=== PATIENT | male | born 1945 | race Two or more races ===

== ENCOUNTER 2019-11-09 15:07 | Emergency (ER) | payer MEDICARE, MEDICAID ==
[~2019-11-09] VITALS: Ht 172.7 cm; Wt 104.0 kg
[2019-11-09 15:35] VITALS: BP 120/76
== END 2019-11-09 20:07 | disposition left against medical advice (07) ==
LOC: ER 15:07
DX: J45.909 Unspecified asthma, uncomplicated (principal); Z53.21 Procedure and treatment not carried out due to patient leaving prior to being seen by health care provider

== ENCOUNTER 2019-11-16 14:44 | Inpatient (IN) | payer MEDICARE, MEDICAID ==
[~2019-11-16] VITALS: Ht 170.2 cm; Wt 100.4 kg
[2019-11-16] MEDS ORDERED: MAGNESIUM 2 G PREMIX 50 ML IV STA (15:48)
[2019-11-16] MEDS ORDERED: METHYLPREDNISOLONE SOD SUCC 125 MG/2 ML VIAL IV STA (15:48)
[2019-11-16] MEDS ORDERED: ALBUTEROL (0.083%) 2.5MG/3ML NEB HHN STA (15:48)
[2019-11-16] MEDS ORDERED: IPRATROPIUM BROMIDE (0.02%) 0.5MG/2.5ML NEB HHN STA (15:48)
[2019-11-16] MEDS ORDERED: LEVOFLOXACIN 500MG PREMIX 100 ML IV ONE (16:00)
[2019-11-16 16:13] LABS: BASOPHILS % 0.5 % (0.0-2.0); EOSINOPHILS % 4.9 % (0.0-5.0); HEMATOCRIT. 45.4 % (42.0-52.0); HEMOGLOBIN. 15.6 g/dL (14.0-18.0); MEAN CORPUSCULAR HEMOGLOBIN 33.2 pg (28.0-32.0); MEAN CORPUSCULAR VOLUME 96.6 fL (80.0-94.0); MEAN PLATELET VOLUME 8.8 fl (7.4-10.4); NEUTROPHILS % 72.6 % (40.0-76.0); PLATELET 175 x1000/uL (130-400); RED CELL DISTRIBUTION WIDTH 14.1 % (11.6-14.6)
[2019-11-16 16:17] LABS: CHLORIDE 109 mEq/L (98-107)
[2019-11-16 16:18] LABS: PROTHROMBIN TIME 10.5 sec (9.6-11.0)
[2019-11-16] MEDS ORDERED: SODIUM CHLORIDE 0.9% 1,000 ML IV ONE (16:51)
[2019-11-16 18:28] VITALS: BP 138/75
[2019-11-16] MEDS ORDERED: IPRATROPIUM/ALBUTEROL 0.5-3(2.5)MG/3ML NEB NEB SCH (18:45)
[2019-11-16] MEDS ORDERED: CLONIDINE 0.1MG TABLET PO PRN (18:45)
[2019-11-16] MEDS ORDERED: ONDANSETRON HCL 4MG/2ML INJ IV PRN (18:45)
[2019-11-16] MEDS ORDERED: ACETAMINOPHEN 325MG TABLET PO PRN (18:45)
[2019-11-16 20:00] VITALS: BP 138/83
[2019-11-16] MEDS ORDERED: INFLUENZA VIRUS VACCINE(AFLURIA) 0.5ML SYR IM ONE (20:00)
[2019-11-16] MEDS: METHYLPREDNISOLONE SOD SUCC 125 MG/2 ML VIAL IV SCH (20:54)
[2019-11-16] MEDS: IPRATROPIUM/ALBUTEROL 0.5-3(2.5)MG/3ML NEB NEB SCH ×2 (21:08→23:52)
[2019-11-16 22:00] VITALS: BP 115/54
[2019-11-16] MEDS: DOXYCYCLINE 100 MG in DEXT 5% WATER 100 ML IV SCH (22:45)
[2019-11-16] MEDS: HEPARIN 5000 UNITS/ML VIAL SUBCUT SCH (22:46)
[2019-11-17] VITALS (12 sets, daily range): BP systolic 103–157; BP diastolic 53–91
[2019-11-17] MEDS: METHYLPREDNISOLONE SOD SUCC 125 MG/2 ML VIAL IV SCH ×3 (02:12→14:14)
[2019-11-17] MEDS: IPRATROPIUM/ALBUTEROL 0.5-3(2.5)MG/3ML NEB NEB SCH ×5 (03:50→20:41)
[2019-11-17 07:06] LABS: CHLORIDE 114 mEq/L (98-107)
[2019-11-17 07:32] LABS: HEMATOCRIT. 42.8 % (42.0-52.0); HEMOGLOBIN. 14.5 g/dL (14.0-18.0); MEAN CORPUSCULAR HEMOGLOBIN 32.7 pg (28.0-32.0); MEAN CORPUSCULAR VOLUME 96.6 fL (80.0-94.0); MEAN PLATELET VOLUME 9.2 fl (7.4-10.4); PLATELET 164 x1000/uL (130-400); RED BLOOD CELL COUNT 4.43 mill/uL (4.7-6.1)
[2019-11-17 08:37] LABS: BG CARBOXYHEMOGLOBIN 0.6 % (0.5-1.5); BG DEOXYHEMOGLOBIN 6.8 % (0.0-5.0); BG FRACTION INSPIRED OXYGEN 21; BG HCO3 ACT 23.1 mmol/L (22.0-26.0); BG METHEMOGLOBIN 0.2 % (0.0-1.5); BG OXYGEN SATURATION 93.1 % (92.0-98.5); BG OXYHEMOGLOBIN 92.4 % (94.0-97.0); BG PCO2 40.7 mmHg (35.0-45.0); BG PH 7.371 (7.350-7.450); BG PO2 64.8 mmHg (75.0-100.0); BG SAMPLE SITE RIGHT RADIAL; BG TOTAL HEMOGLOBIN 15.7 g/dL (12.0-18.0); BG VENT MODE ROOM AIR
[2019-11-17] MEDS: DOXYCYCLINE 100 MG in DEXT 5% WATER 100 ML IV SCH ×2 (08:42→20:31)
[2019-11-17] MEDS: HEPARIN 5000 UNITS/ML VIAL SUBCUT SCH ×2 (08:44→20:31)
[2019-11-17 09:24] LABS: PLATELET ESTIMATE NORMAL
[2019-11-17] MEDS ORDERED: BENZONATATE 100MG CAPSULE PO PRN (13:15)
[2019-11-17] MEDS: BUDESONIDE 0.5MG/2ML NEB HHN SCH (16:55)
[2019-11-17] MEDS: METHYLPREDNISOLONE SOD SUCC 40 MG/ML VIAL IV SCH (20:30)
[2019-11-17] MEDS: FLUTICASONE PROPIONATE 50MCG/SPRAY BOTTLE BOTHNSTRLS SCH (20:31)
[2019-11-18] VITALS (10 sets, daily range): BP systolic 100–141; BP diastolic 48–95
[2019-11-18] MEDS: IPRATROPIUM/ALBUTEROL 0.5-3(2.5)MG/3ML NEB NEB SCH ×6 (01:16→21:27)
[2019-11-18] MEDS: BUDESONIDE 0.5MG/2ML NEB HHN SCH ×3 (04:12→21:27)
[2019-11-18] MEDS: METHYLPREDNISOLONE SOD SUCC 40 MG/ML VIAL IV SCH ×3 (04:37→21:01)
[2019-11-18] MEDS: FLUTICASONE PROPIONATE 50MCG/SPRAY BOTTLE BOTHNSTRLS SCH ×2 (09:26→20:53)
[2019-11-18] MEDS: DOXYCYCLINE 100 MG in DEXT 5% WATER 100 ML IV SCH ×2 (09:26→20:53)
[2019-11-18] MEDS: HEPARIN 5000 UNITS/ML VIAL SUBCUT SCH ×2 (09:27→21:01)
[2019-11-18] MEDS ORDERED: MAGNESIUM HYDROXIDE 400MG/5ML 30ML UDC PO PRN (13:15)
[2019-11-18] MEDS ORDERED: SENNOSIDES/DOCUSATE SOD 8.6/50MG TABLET PO PRN (13:15)
[2019-11-18 15:47] LABS: HEMATOCRIT. 42.7 % (42.0-52.0); HEMOGLOBIN. 14.3 g/dL (14.0-18.0); MEAN CORPUSCULAR HEMOGLOBIN 32.5 pg (28.0-32.0); MEAN CORPUSCULAR VOLUME 97.3 fL (80.0-94.0); MEAN PLATELET VOLUME 8.8 fl (7.4-10.4); PLATELET 208 x1000/uL (130-400); RED BLOOD CELL COUNT 4.39 mill/uL (4.7-6.1); RED CELL DISTRIBUTION WIDTH 14.3 % (11.6-14.6)
[2019-11-18 16:02] LABS: CHLORIDE 111 mEq/L (98-107)
[2019-11-18 17:12] LABS: PLATELET ESTIMATE NORMAL
[2019-11-19] VITALS (12 sets, daily range): BP systolic 107–155; BP diastolic 48–91
[2019-11-19] MEDS: IPRATROPIUM/ALBUTEROL 0.5-3(2.5)MG/3ML NEB NEB SCH ×5 (00:21→16:53)
[2019-11-19] MEDS: METHYLPREDNISOLONE SOD SUCC 40 MG/ML VIAL IV SCH ×2 (03:04→12:04)
[2019-11-19 07:07] LABS: HEMATOCRIT. 44.3 % (42.0-52.0); MEAN CORPUSCULAR HEMOGLOBIN 33.1 pg (28.0-32.0); MEAN CORPUSCULAR VOLUME 97.7 fL (80.0-94.0); MEAN PLATELET VOLUME 8.8 fl (7.4-10.4); PLATELET 203 x1000/uL (130-400); RED BLOOD CELL COUNT 4.54 mill/uL (4.7-6.1); RED CELL DISTRIBUTION WIDTH 14.5 % (11.6-14.6)
[2019-11-19 07:21] LABS: CHLORIDE 112 mEq/L (98-107)
[2019-11-19] MEDS: BUDESONIDE 0.5MG/2ML NEB HHN SCH ×2 (08:04→21:08)
[2019-11-19] MEDS: HEPARIN 5000 UNITS/ML VIAL SUBCUT SCH ×2 (09:37→20:57)
[2019-11-19] MEDS: FLUTICASONE PROPIONATE 50MCG/SPRAY BOTTLE BOTHNSTRLS SCH ×2 (09:38→20:56)
[2019-11-19] MEDS: DOCUSATE SODIUM 100MG CAPSULE PO PRN ×2 (09:38→17:07)
[2019-11-19] MEDS: DOXYCYCLINE 100 MG in DEXT 5% WATER 100 ML IV SCH ×2 (09:38→20:56)
[2019-11-19 10:12] LABS: CLARITY URINE CLEAR (CLEAR); COLOR URINE YELLOW (YELLOW); KETONES URINE NEGATIVE (NEGATIVE); LEUKOCYTE ESTERASE URINE NEGATIVE (NEGATIVE); NITRITE URINE NEGATIVE (NEGATIVE); OCCULT BLOOD URINE NEGATIVE (NEGATIVE); PH URINE 6.5 (4.5-8.0); PROTEIN URINE NEGATIVE (NEGATIVE); SPECIFIC GRAVITY URINE 1.017 (1.005-1.030); UROBILINOGEN URINE 0.2 E.U./dL (0.2-1.0)
[2019-11-19 10:26] LABS: PLATELET ESTIMATE NORMAL
[2019-11-19 12:14] LABS: T4 FREE 1.04 ng/dL (0.76-1.46)
[2019-11-19 14:15] LABS: VITAMIN B12 SERUM > 2000.0 pg/mL (211-911)
[2019-11-19] MEDS: LORATADINE 10MG TABLET PO SCH (15:29)
[2019-11-19] MEDS: MONTELUKAST SODIUM 10MG TABLET PO SCH (17:07)
[2019-11-19] MEDS: METHYLPREDNISOLONE SOD SUCC 125 MG/2 ML VIAL IV SCH (20:55)
[2019-11-19] MEDS: FAMOTIDINE 20MG TABLET PO SCH (20:56)
[2019-11-20] VITALS (11 sets, daily range): BP systolic 123–158; BP diastolic 67–99
[2019-11-20] MEDS: IPRATROPIUM/ALBUTEROL 0.5-3(2.5)MG/3ML NEB NEB SCH ×7 (00:06→23:57)
[2019-11-20] MEDS: METHYLPREDNISOLONE SOD SUCC 125 MG/2 ML VIAL IV SCH ×3 (04:41→20:24)
[2019-11-20 06:57] LABS: CHLORIDE 111 mEq/L (98-107)
[2019-11-20 07:06] LABS: BASOPHILS % 0.1 % (0.0-2.0); HEMATOCRIT. 43.6 % (42.0-52.0); HEMOGLOBIN. 14.5 g/dL (14.0-18.0); LYMPHOCYTES % 8.3 % (20.0-50.0); MEAN CORPUSCULAR HEMOGLOBIN 32.6 pg (28.0-32.0); MEAN CORPUSCULAR VOLUME 97.6 fL (80.0-94.0); MEAN PLATELET VOLUME 8.9 fl (7.4-10.4); MONOCYTES % 4.7 % (2.0-8.0); NEUTROPHILS % 86.9 % (40.0-76.0); PLATELET 187 x1000/uL (130-400); RED BLOOD CELL COUNT 4.46 mill/uL (4.7-6.1)
[2019-11-20] MEDS: LORATADINE 10MG TABLET PO SCH (08:22)
[2019-11-20] MEDS: DOXYCYCLINE 100 MG in DEXT 5% WATER 100 ML IV SCH ×2 (08:22→20:25)
[2019-11-20] MEDS: HEPARIN 5000 UNITS/ML VIAL SUBCUT SCH ×2 (08:23→20:26)
[2019-11-20] MEDS: FLUTICASONE PROPIONATE 50MCG/SPRAY BOTTLE BOTHNSTRLS SCH ×2 (08:24→20:26)
[2019-11-20] MEDS: BUDESONIDE 0.5MG/2ML NEB HHN SCH (08:54)
[2019-11-20] MEDS: FAMOTIDINE 20MG TABLET PO SCH ×2 (10:46→20:25)
[2019-11-20] MEDS: MONTELUKAST SODIUM 10MG TABLET PO SCH (16:43)
[2019-11-21] VITALS (12 sets, daily range): BP systolic 122–154; BP diastolic 58–93
[2019-11-21] MEDS: IPRATROPIUM/ALBUTEROL 0.5-3(2.5)MG/3ML NEB NEB SCH ×5 (04:26→19:47)
[2019-11-21] MEDS: METHYLPREDNISOLONE SOD SUCC 125 MG/2 ML VIAL IV SCH ×3 (05:48→20:15)
[2019-11-21 07:05] LABS: CHLORIDE 110 mEq/L (98-107)
[2019-11-21 07:08] LABS: HEMATOCRIT. 43.1 % (42.0-52.0); HEMOGLOBIN. 14.9 g/dL (14.0-18.0); MEAN CORPUSCULAR HEMOGLOBIN 33.1 pg (28.0-32.0); MEAN CORPUSCULAR VOLUME 96.2 fL (80.0-94.0); MEAN PLATELET VOLUME 8.8 fl (7.4-10.4); PLATELET 197 x1000/uL (130-400); RED BLOOD CELL COUNT 4.48 mill/uL (4.7-6.1); RED CELL DISTRIBUTION WIDTH 14.3 % (11.6-14.6)
[2019-11-21 08:24] LABS: BG BASE EXCESS 1.5 mmol/L (-2.0-2.0); BG CARBOXYHEMOGLOBIN 0.3 % (0.5-1.5); BG DEOXYHEMOGLOBIN 2.5 % (0.0-5.0); BG HCO3 ACT 26.3 mmol/L (22.0-26.0); BG METHEMOGLOBIN 0.2 % (0.0-1.5); BG OXYGEN SATURATION 97.5 % (92.0-98.5); BG PCO2 42.1 mmHg (35.0-45.0); BG PH 7.413 (7.350-7.450); BG PO2 98.8 mmHg (75.0-100.0); BG SAMPLE SITE RIGHT BRACHIAL; BG TOTAL HEMOGLOBIN 15.3 g/dL (12.0-18.0); BG VENT MODE NASAL CANNULA
[2019-11-21] MEDS: FAMOTIDINE 20MG TABLET PO SCH ×2 (08:39→20:15)
[2019-11-21] MEDS: HEPARIN 5000 UNITS/ML VIAL SUBCUT SCH ×2 (08:39→20:15)
[2019-11-21] MEDS: LORATADINE 10MG TABLET PO SCH (08:39)
[2019-11-21] MEDS: DOXYCYCLINE 100 MG in DEXT 5% WATER 100 ML IV SCH ×2 (08:40→20:17)
[2019-11-21 09:25] LABS: PLATELET ESTIMATE NORMAL
[2019-11-21] MEDS: MONTELUKAST SODIUM 10MG TABLET PO SCH (16:26)
[2019-11-22] VITALS (11 sets, daily range): BP systolic 110–158; BP diastolic 58–89
[2019-11-22] MEDS: IPRATROPIUM/ALBUTEROL 0.5-3(2.5)MG/3ML NEB NEB SCH ×5 (00:12→15:44)
[2019-11-22] MEDS: METHYLPREDNISOLONE SOD SUCC 125 MG/2 ML VIAL IV SCH ×2 (03:51→12:29)
[2019-11-22 07:07] LABS: CHLORIDE 109 mEq/L (98-107)
[2019-11-22] MEDS: DOXYCYCLINE 100 MG in DEXT 5% WATER 100 ML IV SCH (09:00)
[2019-11-22] MEDS: LORATADINE 10MG TABLET PO SCH (09:01)
[2019-11-22] MEDS: FAMOTIDINE 20MG TABLET PO SCH (09:15)
[2019-11-22] MEDS: HEPARIN 5000 UNITS/ML VIAL SUBCUT SCH (09:17)
[2019-11-22 09:41] LABS: HEMOGLOBIN. 15.6 g/dL (14.0-18.0); MEAN CORPUSCULAR HEMOGLOBIN 32.2 pg (28.0-32.0); MEAN PLATELET VOLUME 8.6 fl (7.4-10.4); PLATELET 220 x1000/uL (130-400); RED BLOOD CELL COUNT 4.85 mill/uL (4.7-6.1); RED CELL DISTRIBUTION WIDTH 14.7 % (11.6-14.6)
[2019-11-22 11:20] LABS: PLATELET ESTIMATE NORMAL
[2019-11-22] MEDS: SODIUM POLYSTYRENE SULFONATE 15 G/60 ML BOT PO NR ×2 (14:36→14:45)
[2019-11-22] MEDS: MONTELUKAST SODIUM 10MG TABLET PO SCH (17:37)
[2019-11-22] MEDS ORDERED: METHYLPREDNISOLONE SOD SUCC 40 MG/ML VIAL IV SCH (20:00)
== END 2019-11-22 20:05 | DRG 189 ==
LOC: ER 14:44 → 3WST 17:07 → EDBEDREQ 17:12 → EDBEDREQSVC 17:12 → ENRESERV 17:20
PROVIDERS: ADMIT Internal Medicine; ATTEND Internal Medicine
PROC: 4A00X4Z Measurement of Central Nervous Electrical Activity, External Approach (ICD-10-PCS; principal; 2019-11-22)
DX: J96.01 Acute respiratory failure with hypoxia (principal); G92 Toxic encephalopathy; G82.50 Quadriplegia, unspecified; M47.12 Other spondylosis with myelopathy, cervical region; J44.0 Chronic obstructive pulmonary disease with (acute) lower respiratory infection; J45.901 Unspecified asthma with (acute) exacerbation; G95.29 Other cord compression; J44.1 Chronic obstructive pulmonary disease with (acute) exacerbation; J20.9 Acute bronchitis, unspecified; I10 Essential (primary) hypertension; M48.02 Spinal stenosis, cervical region; M48.061 Spinal stenosis, lumbar region without neurogenic claudication; E66.01 Morbid (severe) obesity due to excess calories; R53.81 Other malaise; R47.1 Dysarthria and anarthria; J31.0 Chronic rhinitis; J84.10 Pulmonary fibrosis, unspecified; G31.84 Mild cognitive impairment of uncertain or unknown etiology; R26.89 Other abnormalities of gait and mobility; R90.82 White matter disease, unspecified; M47.892 Other spondylosis, cervical region; M19.90 Unspecified osteoarthritis, unspecified site; Z87.891 Personal history of nicotine dependence; Z68.34 Body mass index [BMI] 34.0-34.9, adult; Z99.3 Dependence on wheelchair
CPT/HCPCS: 36415; 36600; 70551; 71045; 72141; 72146; 72148; 73521; 80048; 80053; 81003; 82140; 82375; 82607; 82746; 82805; 83036; 83605; 83735; 83880; 84145; 84436; 84439; 84443; 84480; 84481; 84484; 85025; 87804; 90686; 93005; 93970; 94640; 94644; 96365; 97162; 97166; 97530; 99291; J1644; J1956; J2920; J2930; J3475; J3490; J7030; J7060; J7626

== ENCOUNTER 2019-12-01 16:03 | Inpatient (IN) | payer MEDICARE, MEDICAID ==
[~2019-12-01] VITALS: Ht 167.6 cm; Wt 100.4 kg
[2019-12-01] MEDS ORDERED: SODIUM CHLORIDE 0.9% 1,000 ML IV ONE (16:48)
[2019-12-01 17:26] LABS: INR 0.9
[2019-12-01 17:28] LABS: BASOPHILS % 0.2 % (0.0-2.0); EOSINOPHILS % 0.6 % (0.0-5.0); HEMATOCRIT. 44.6 % (42.0-52.0); HEMOGLOBIN. 15.1 g/dL (14.0-18.0); LYMPHOCYTES % 7.7 % (20.0-50.0); MEAN CORPUSCULAR HEMOGLOBIN 32.6 pg (28.0-32.0); MEAN CORPUSCULAR VOLUME 96.4 fL (80.0-94.0); MEAN PLATELET VOLUME 9.1 fl (7.4-10.4); MONOCYTES % 4.4 % (2.0-8.0); NEUTROPHILS % 87.1 % (40.0-76.0); PLATELET 157 x1000/uL (130-400); RED BLOOD CELL COUNT 4.63 mill/uL (4.7-6.1); RED CELL DISTRIBUTION WIDTH 14.5 % (11.6-14.6)
[2019-12-01 17:30] LABS: CHLORIDE 106 mEq/L (98-107)
[2019-12-01 18:43] LABS: CLARITY URINE CLEAR (CLEAR); COLOR URINE YELLOW (YELLOW); KETONES URINE NEGATIVE (NEGATIVE); LEUKOCYTE ESTERASE URINE NEGATIVE (NEGATIVE); NITRITE URINE NEGATIVE (NEGATIVE); OCCULT BLOOD URINE NEGATIVE (NEGATIVE); PH URINE 6.5 (4.5-8.0); PROTEIN URINE NEGATIVE (NEGATIVE); SPECIFIC GRAVITY URINE 1.013 (1.005-1.030); UROBILINOGEN URINE 0.2 E.U./dL (0.2-1.0)
[2019-12-01] MEDS ORDERED: ACETAMINOPHEN 325MG TABLET PO PRN (18:45)
[2019-12-01] MEDS ORDERED: ONDANSETRON HCL 4MG/2ML INJ IV PRN (18:45)
[2019-12-01] MEDS ORDERED: HYDROCODONE/ACETAMINOPHEN 5/325MG TABLET PO PRN (18:45)
[2019-12-01 22:42] VITALS: BP 111/66
[2019-12-01] MEDS ORDERED: FAMO20TA8 PO (23:32)
[2019-12-01] MEDS ORDERED: NA P230E RC (23:32)
[2019-12-01] MEDS ORDERED: CLON0.1T PO (23:32)
[2019-12-01] MEDS ORDERED: MONT10TA26 PO (23:32)
[2019-12-01] MEDS ORDERED: DOCU-150 PO (23:32)
[2019-12-01] MEDS ORDERED: BENZ100C86 MT (23:32)
[2019-12-01] MEDS ORDERED: MOM MT (23:32)
[2019-12-01] MEDS ORDERED: IPRA3AMP31 IH (23:32)
[2019-12-01] MEDS ORDERED: ONDA4SOL PO (23:32)
[2019-12-01 23:36] VITALS: BP 111/72
[2019-12-02 04:00] VITALS: BP_SYST 106
[2019-12-02] MEDS ORDERED: IPRATROPIUM/ALBUTEROL 0.5-3(2.5)MG/3ML NEB HHN PRN (05:00)
[2019-12-02 06:12] LABS: BASOPHILS % 0.3 % (0.0-2.0); EOSINOPHILS % 1.4 % (0.0-5.0); HEMATOCRIT. 43.1 % (42.0-52.0); HEMOGLOBIN. 14.6 g/dL (14.0-18.0); LYMPHOCYTES % 16.3 % (20.0-50.0); MEAN CORPUSCULAR HEMOGLOBIN 32.9 pg (28.0-32.0); MEAN CORPUSCULAR VOLUME 97.3 fL (80.0-94.0); MEAN PLATELET VOLUME 9.2 fl (7.4-10.4); MONOCYTES % 6.3 % (2.0-8.0); NEUTROPHILS % 75.7 % (40.0-76.0); PLATELET 141 x1000/uL (130-400); RED BLOOD CELL COUNT 4.43 mill/uL (4.7-6.1); RED CELL DISTRIBUTION WIDTH 14.6 % (11.6-14.6)
[2019-12-02 06:34] LABS: CHLORIDE 113 mEq/L (98-107)
[2019-12-02 08:00] VITALS: BP 116/56
[2019-12-02] MEDS: DEXAMETHASONE 4MG/ML 1ML VIAL IV SCH ×2 (08:17→13:25)
[2019-12-02] MEDS ORDERED: HEPARIN 5000 UNITS/ML VIAL SUBCUT SCH (09:00)
[2019-12-02 12:00] VITALS: BP 115/66
[2019-12-02] MEDS ORDERED: MAGNESIUM HYDROXIDE 400MG/5ML 30ML UDC PO PRN (12:15)
[2019-12-02] MEDS ORDERED: FAMOTIDINE 20MG TABLET PO PRN (12:30)
[2019-12-02] MEDS: BENZONATATE 100MG CAPSULE PO SCH ×2 (13:28→21:59)
[2019-12-02 16:00] VITALS: BP 113/83
[2019-12-02 16:50] LABS: BG BASE EXCESS -2.5 mmol/L (-2.0-2.0); BG CARBOXYHEMOGLOBIN 0.2 % (0.5-1.5); BG DEOXYHEMOGLOBIN 3.3 % (0.0-5.0); BG HCO3 ACT 21.5 mmol/L (22.0-26.0); BG METHEMOGLOBIN 0.1 % (0.0-1.5); BG OXYGEN SATURATION 96.7 % (92.0-98.5); BG OXYHEMOGLOBIN 96.4 % (94.0-97.0); BG PH 7.406 (7.350-7.450); BG PO2 85.7 mmHg (75.0-100.0); BG SAMPLE SITE RIGHT RADIAL; BG TOTAL HEMOGLOBIN 15.4 g/dL (12.0-18.0); BG VENT MODE NASAL CANNULA
[2019-12-02] MEDS: LACTULOSE 20G/30ML UDC PO SCH ×3 (17:00→20:41)
[2019-12-02] MEDS: MONTELUKAST SODIUM 10MG TABLET PO SCH (17:41)
[2019-12-02] MEDS: LORATADINE 10MG TABLET PO SCH (17:41)
[2019-12-02] MEDS: DEXAMETHASONE 10 MG/ML VIAL IV SCH (17:42)
[2019-12-02] MEDS: FAMOTIDINE 20MG/2ML VIAL IV SCH (17:42)
[2019-12-02] MEDS ORDERED: METHYLPREDNISOLONE SOD SUCC 125 MG/2 ML VIAL IV SCH (18:00)
[2019-12-02 20:00] VITALS: BP 114/70
[2019-12-02] MEDS: FLUTICASONE PROPIONATE 50MCG/SPRAY BOTTLE BOTHNSTRLS SCH (20:41)
[2019-12-02] MEDS: IPRATROPIUM/ALBUTEROL 0.5-3(2.5)MG/3ML NEB HHN SCH (21:10)
[2019-12-03] VITALS: BP 118/71
[2019-12-03] MEDS: IPRATROPIUM/ALBUTEROL 0.5-3(2.5)MG/3ML NEB HHN SCH ×6 (00:26→21:33)
[2019-12-03] MEDS: DEXAMETHASONE 10 MG/ML VIAL IV SCH ×4 (01:03→17:52)
[2019-12-03 04:00] VITALS: BP 131/70
[2019-12-03] MEDS: FAMOTIDINE 20MG/2ML VIAL IV SCH ×2 (06:24→17:52)
[2019-12-03] MEDS: BENZONATATE 100MG CAPSULE PO SCH ×3 (06:24→21:28)
[2019-12-03 06:57] LABS: CHLORIDE 109 mEq/L (98-107)
[2019-12-03 06:59] LABS: HEMATOCRIT. 43.2 % (42.0-52.0); HEMOGLOBIN. 14.4 g/dL (14.0-18.0); MEAN CORPUSCULAR HEMOGLOBIN 32.4 pg (28.0-32.0); MEAN PLATELET VOLUME 9.1 fl (7.4-10.4); PLATELET 147 x1000/uL (130-400); RED BLOOD CELL COUNT 4.45 mill/uL (4.7-6.1); RED CELL DISTRIBUTION WIDTH 14.4 % (11.6-14.6)
[2019-12-03 08:00] VITALS: BP_SYST 111; BP_SYST 119; BP_DIAS 65; BP_DIAS 67
[2019-12-03] MEDS: FLUTICASONE PROPIONATE 50MCG/SPRAY BOTTLE BOTHNSTRLS SCH ×2 (08:52→20:55)
[2019-12-03] MEDS: LORATADINE 10MG TABLET PO SCH (08:52)
[2019-12-03 11:08] LABS: PLATELET ESTIMATE NORMAL
[2019-12-03 12:00] VITALS: BP 111/65
[2019-12-03 15:59] VITALS: BP 120/72
[2019-12-03] MEDS: MONTELUKAST SODIUM 10MG TABLET PO SCH (17:52)
[2019-12-03 20:00] VITALS: BP 120/61
[2019-12-03] MEDS: ATORVASTATIN CALCIUM 20MG TABLET PO SCH (20:54)
[2019-12-04] VITALS (49 sets, daily range): BP systolic 100–143; BP diastolic 6–72
[2019-12-04] MEDS: DEXAMETHASONE 10 MG/ML VIAL IV SCH ×2 (01:55→06:29)
[2019-12-04] MEDS: IPRATROPIUM/ALBUTEROL 0.5-3(2.5)MG/3ML NEB HHN SCH ×5 (04:17→20:14)
[2019-12-04] MEDS: BENZONATATE 100MG CAPSULE PO SCH ×3 (06:29→21:58)
[2019-12-04 06:39] LABS: HEMATOCRIT. 42.8 % (42.0-52.0); HEMOGLOBIN. 14.5 g/dL (14.0-18.0); MEAN CORPUSCULAR VOLUME 96.9 fL (80.0-94.0); MEAN PLATELET VOLUME 9.4 fl (7.4-10.4); PLATELET 157 x1000/uL (130-400); RED BLOOD CELL COUNT 4.41 mill/uL (4.7-6.1); RED CELL DISTRIBUTION WIDTH 14.6 % (11.6-14.6)
[2019-12-04] MEDS ORDERED: THROMBIN (BOVINE) 5000 UNITS/VIAL TOP ONE (06:54)
[2019-12-04] MEDS ORDERED: LIDOCAINE HCL/EPINEPHRINE 1%-EPI 1:100,000 20 ML VIAL ONE ×2 (06:55→07:17)
[2019-12-04] MEDS ORDERED: BACITRACIN 50,000 UNITS/VIAL ONE (06:55)
[2019-12-04 06:59] LABS: CHLORIDE 111 mEq/L (98-107)
[2019-12-04] MEDS ORDERED: HYDROCODONE/ACETAMINOPHEN 5/325MG TABLET PO PRN (07:30)
[2019-12-04] MEDS ORDERED: CEFAZOLIN SODIUM 1000MG/VIAL ONE (07:38)
[2019-12-04] MEDS ORDERED: GLYCOPYRROLATE 0.2 MG/ML 2ML VIAL ONE (07:38)
[2019-12-04] MEDS ORDERED: SODIUM CHLORIDE 0.9% 10ML VIAL ONE (07:38)
[2019-12-04] MEDS ORDERED: ROCURONIUM BROMIDE 10MG/ML VIAL 5ML IV ONE ×3 (07:38→09:02)
[2019-12-04] MEDS ORDERED: NEOSTIGMINE METHYLSULFATE 1MG/ML 10 ML VIAL ONE (07:38)
[2019-12-04] MEDS ORDERED: SUCCINYLCHOLINE CHLORIDE 200MG/10ML IV ONE (07:38)
[2019-12-04] MEDS ORDERED: PROPOFOL 200MG/20ML VIAL IV ONE ×2 (07:38→08:24)
[2019-12-04] MEDS ORDERED: FENTANYL CITRATE/PF 50MCG/ML 2ML VIAL ONE (07:38)
[2019-12-04] MEDS ORDERED: LIDOCAINE HCL/PF 1% 10 MG/ML 5ML VIAL ONE (07:38)
[2019-12-04] MEDS ORDERED: MIDAZOLAM HCL 2 MG/2 ML VIAL ONE (07:38)
[2019-12-04] MEDS ORDERED: DEXAMETHASONE 4MG/ML 1ML VIAL ONE (07:39)
[2019-12-04] MEDS ORDERED: METOCLOPRAMIDE HCL 10MG/2ML VIAL ONE (07:39)
[2019-12-04] MEDS ORDERED: ONDANSETRON HCL 4MG/2ML INJ ONE (07:39)
[2019-12-04] MEDS: FLUTICASONE PROPIONATE 50MCG/SPRAY BOTTLE BOTHNSTRLS SCH ×2 (09:00→19:53)
[2019-12-04] MEDS ORDERED: HYDROMORPHONE HCL/PF 2MG/ML CPJ IV PRN (09:00)
[2019-12-04] MEDS ORDERED: LABETALOL 5MG/ML SYR 20 MG/4 ML SYRINGE IV PRN (09:00)
[2019-12-04] MEDS ORDERED: FAMOTIDINE 20MG TABLET PO SCH (09:00)
[2019-12-04] MEDS ORDERED: ONDANSETRON HCL 4MG/2ML INJ IV PRN (09:00)
[2019-12-04] MEDS ORDERED: MEPERIDINE HCL/PF 25MG/ML CPJ IV PRN (09:00)
[2019-12-04] MEDS: LORATADINE 10MG TABLET PO SCH (09:00)
[2019-12-04 09:15] LABS: PLATELET ESTIMATE NORMAL
[2019-12-04] MEDS: MORPHINE SULFATE 4 MG/ML CPJ (NOT FOR IM USE) IV PRN ×2 (11:07→14:50)
[2019-12-04] MEDS: NICARDIPINE 100 MG in SODIUM CHLORIDE 0.9% 60 ML IV PRN ×2 (11:08→17:49)
[2019-12-04] MEDS: DEXT 5%/LACTATED RINGERS 1,000 ML IV SCH ×2 (11:08→17:30)
[2019-12-04] MEDS ORDERED: MORPHINE SULFATE 4 MG/ML CPJ (NOT FOR IM USE) IV NR (11:15)
[2019-12-04] MEDS: PROPOFOL 10MG/ML 100ML 100 ML IV PRN ×4 (11:20→22:22)
[2019-12-04 12:14] LABS: BG BASE EXCESS -4.9 mmol/L (-2.0-2.0); BG CARBOXYHEMOGLOBIN 0.4 % (0.5-1.5); BG DEOXYHEMOGLOBIN 0.9 % (0.0-5.0); BG HCO3 ACT 22.5 mmol/L (22.0-26.0); BG METHEMOGLOBIN 0.4 % (0.0-1.5); BG OXYGEN SATURATION 99.1 % (92.0-98.5); BG OXYHEMOGLOBIN 98.3 % (94.0-97.0); BG PCO2 50.9 mmHg (35.0-45.0); BG PH 7.264 (7.350-7.450); BG PO2 189.4 mmHg (75.0-100.0); BG SAMPLE SITE A-LINE; BG TIDAL VOLUME(mL) 550 mL; BG TOTAL HEMOGLOBIN 14.3 g/dL (12.0-18.0); BG VENT MODE VENT - A/C; BG VENT RATE 12 set
[2019-12-04] MEDS: DEXAMETHASONE 4MG/ML 1ML VIAL IV SCH ×3 (13:15→23:41)
[2019-12-04 14:35] LABS: BG BASE EXCESS -3.4 mmol/L (-2.0-2.0); BG CARBOXYHEMOGLOBIN 0.7 % (0.5-1.5); BG HCO3 ACT 21.1 mmol/L (22.0-26.0); BG METHEMOGLOBIN 0.2 % (0.0-1.5); BG OXYHEMOGLOBIN 98.1 % (94.0-97.0); BG PCO2 36.2 mmHg (35.0-45.0); BG PH 7.383 (7.350-7.450); BG PO2 160.2 mmHg (75.0-100.0); BG SAMPLE SITE A-LINE; BG TIDAL VOLUME(mL) 550 mL; BG TOTAL HEMOGLOBIN 13.9 g/dL (12.0-18.0); BG VENT MODE VENT - A/C; BG VENT RATE 18 set
[2019-12-04] MEDS: AZITHROMYCIN 500 MG in DEXT 5% WATER 250 ML IV SCH (16:10)
[2019-12-04] MEDS ORDERED: CEFTRIAXONE 1 G PREMIX 50 ML IV SCH (17:00)
[2019-12-04] MEDS: MONTELUKAST SODIUM 10MG TABLET PO SCH (17:00)
[2019-12-04] MEDS: ATORVASTATIN CALCIUM 20MG TABLET PO SCH (19:53)
[2019-12-04] MEDS: FAMOTIDINE 20MG/2ML VIAL IV SCH (20:43)
[2019-12-05] VITALS (78 sets, daily range): BP systolic 98–157; BP diastolic 44–84
[2019-12-05] MEDS: IPRATROPIUM/ALBUTEROL 0.5-3(2.5)MG/3ML NEB HHN SCH ×6 (00:14→20:24)
[2019-12-05] MEDS: PROPOFOL 10MG/ML 100ML 100 ML IV PRN ×3 (01:31→09:58)
[2019-12-05] MEDS: DEXT 5%/LACTATED RINGERS 1,000 ML IV SCH ×3 (01:39→23:30)
[2019-12-05] MEDS: MORPHINE SULFATE 4 MG/ML CPJ (NOT FOR IM USE) IV PRN ×3 (02:31→11:56)
[2019-12-05] MEDS: DEXAMETHASONE 4MG/ML 1ML VIAL IV SCH ×3 (05:15→17:10)
[2019-12-05] MEDS: BENZONATATE 100MG CAPSULE PO SCH ×3 (05:16→20:15)
[2019-12-05 05:46] LABS: HEMATOCRIT. 37.8 % (42.0-52.0); HEMOGLOBIN. 12.7 g/dL (14.0-18.0); MEAN CORPUSCULAR HEMOGLOBIN 32.7 pg (28.0-32.0); MEAN PLATELET VOLUME 8.9 fl (7.4-10.4); PLATELET 141 x1000/uL (130-400); RED CELL DISTRIBUTION WIDTH 14.2 % (11.6-14.6)
[2019-12-05 05:56] LABS: CHLORIDE 111 mEq/L (98-107)
[2019-12-05 07:46] LABS: BG BASE EXCESS -4.2 mmol/L (-2.0-2.0); BG CARBOXYHEMOGLOBIN 0.3 % (0.5-1.5); BG HCO3 ACT 19.1 mmol/L (22.0-26.0); BG OXYHEMOGLOBIN 97.7 % (94.0-97.0); BG PCO2 30.2 mmHg (35.0-45.0); BG PO2 107.2 mmHg (75.0-100.0); BG SAMPLE SITE A-LINE; BG TIDAL VOLUME(mL) 550 mL; BG TOTAL HEMOGLOBIN 12.7 g/dL (12.0-18.0); BG VENT MODE VENT - A/C; BG VENT RATE 18 set
[2019-12-05 08:27] LABS: PLATELET ESTIMATE NORMAL
[2019-12-05] MEDS: LORATADINE 10MG TABLET PO SCH (09:00)
[2019-12-05] MEDS: FLUTICASONE PROPIONATE 50MCG/SPRAY BOTTLE BOTHNSTRLS SCH (09:00)
[2019-12-05] MEDS: FAMOTIDINE 20MG/2ML VIAL IV SCH ×2 (09:55→21:15)
[2019-12-05 13:08] LABS: BG BASE EXCESS -1.5 mmol/L (-2.0-2.0); BG CARBOXYHEMOGLOBIN 0.3 % (0.5-1.5); BG DEOXYHEMOGLOBIN 3.2 % (0.0-5.0); BG HCO3 ACT 22.9 mmol/L (22.0-26.0); BG METHEMOGLOBIN 0.2 % (0.0-1.5); BG OXYGEN SATURATION 96.8 % (92.0-98.5); BG OXYHEMOGLOBIN 96.3 % (94.0-97.0); BG PCO2 37.7 mmHg (35.0-45.0); BG PH 7.402 (7.350-7.450); BG PO2 83.4 mmHg (75.0-100.0); BG SAMPLE SITE RIGHT BRACHIAL; BG TIDAL VOLUME(mL) 550 mL; BG VENT MODE VENT - SIMV; BG VENT RATE 8 set
[2019-12-05] MEDS: AZITHROMYCIN 500 MG in DEXT 5% WATER 250 ML IV SCH (14:27)
[2019-12-05 15:35] LABS: BG CPAP (cmH2O) 0 cm(H2O); BG DEOXYHEMOGLOBIN 3.4 % (0.0-5.0); BG METHEMOGLOBIN 0.2 % (0.0-1.5); BG OXYGEN SATURATION 96.6 % (92.0-98.5); BG OXYHEMOGLOBIN 96.4 % (94.0-97.0); BG PCO2 36.2 mmHg (35.0-45.0); BG PH 7.421 (7.350-7.450); BG SAMPLE SITE RIGHT BRACHIAL; BG TOTAL HEMOGLOBIN 14.1 g/dL (12.0-18.0); BG VENT MODE VENT - CPAP
[2019-12-05] MEDS: MONTELUKAST SODIUM 10MG TABLET PO SCH (17:00)
[2019-12-05] MEDS: NICARDIPINE 100 MG in SODIUM CHLORIDE 0.9% 60 ML IV PRN (17:11)
[2019-12-05 18:13] LABS: BG BASE EXCESS -1.8 mmol/L (-2.0-2.0); BG CARBOXYHEMOGLOBIN 0.4 % (0.5-1.5); BG HCO3 ACT 21.6 mmol/L (22.0-26.0); BG METHEMOGLOBIN 0.3 % (0.0-1.5); BG OXYHEMOGLOBIN 97.3 % (94.0-97.0); BG PCO2 32.7 mmHg (35.0-45.0); BG PH 7.437 (7.350-7.450); BG PO2 100.8 mmHg (75.0-100.0); BG SAMPLE SITE RIGHT BRACHIAL; BG TOTAL HEMOGLOBIN 14.1 g/dL (12.0-18.0); BG VENT MODE MASK - AEROSOL
[2019-12-05] MEDS: ATORVASTATIN CALCIUM 20MG TABLET PO SCH (20:14)
[2019-12-05] MEDS: CEFTRIAXONE 1 G PREMIX 50 ML IV SCH (21:19)
[2019-12-06] VITALS (92 sets, daily range): BP systolic 91–156; BP diastolic 25–99
[2019-12-06] MEDS: DEXAMETHASONE 4MG/ML 1ML VIAL IV SCH ×3 (00:55→12:00)
[2019-12-06] MEDS: IPRATROPIUM/ALBUTEROL 0.5-3(2.5)MG/3ML NEB HHN SCH ×5 (01:50→20:23)
[2019-12-06] MEDS: BENZONATATE 100MG CAPSULE PO SCH ×3 (05:12→22:12)
[2019-12-06 05:20] LABS: HEMATOCRIT. 40.2 % (42.0-52.0); HEMOGLOBIN. 13.6 g/dL (14.0-18.0); MEAN CORPUSCULAR HEMOGLOBIN 32.8 pg (28.0-32.0); MEAN CORPUSCULAR VOLUME 96.9 fL (80.0-94.0); MEAN PLATELET VOLUME 8.7 fl (7.4-10.4); PLATELET 135 x1000/uL (130-400); RED BLOOD CELL COUNT 4.14 mill/uL (4.7-6.1); RED CELL DISTRIBUTION WIDTH 14.1 % (11.6-14.6)
[2019-12-06 05:31] LABS: CHLORIDE 111 mEq/L (98-107)
[2019-12-06 06:24] LABS: PLATELET ESTIMATE NORMAL
[2019-12-06] MEDS ORDERED: LIDOCAINE HCL 1% 20ML VIAL (Pyxis) INJ ONE (07:28)
[2019-12-06] MEDS: DOCUSATE SODIUM 100MG CAPSULE PO PRN (08:57)
[2019-12-06] MEDS: FAMOTIDINE 20MG/2ML VIAL IV SCH ×2 (08:57→21:30)
[2019-12-06] MEDS: LORATADINE 10MG TABLET PO SCH (08:58)
[2019-12-06] MEDS: MORPHINE SULFATE 4 MG/ML CPJ (NOT FOR IM USE) IV PRN (09:00)
[2019-12-06] MEDS: DEXT 5%/LACTATED RINGERS 1,000 ML IV SCH (09:01)
[2019-12-06] MEDS: CLONIDINE 0.1MG TABLET PO PRN ×2 (09:58→17:10)
[2019-12-06] MEDS: AZITHROMYCIN 500 MG in DEXT 5% WATER 250 ML IV SCH (14:18)
[2019-12-06] MEDS: MONTELUKAST SODIUM 10MG TABLET PO SCH (17:10)
[2019-12-06] MEDS: BUDESONIDE 0.5MG/2ML NEB HHN SCH (17:20)
[2019-12-06] MEDS: CARVEDILOL 6.25 MG TABLET PO SCH ×2 (19:22→21:00)
[2019-12-06] MEDS: ATORVASTATIN CALCIUM 20MG TABLET PO SCH (21:30)
[2019-12-06] MEDS: CEFTRIAXONE 1 G PREMIX 50 ML IV SCH (21:30)
[2019-12-07] VITALS (58 sets, daily range): BP systolic 107–160; BP diastolic 42–89
[2019-12-07] MEDS: IPRATROPIUM/ALBUTEROL 0.5-3(2.5)MG/3ML NEB HHN SCH ×4 (02:19→21:37)
[2019-12-07 05:34] LABS: HEMATOCRIT. 38.2 % (42.0-52.0); MEAN CORPUSCULAR VOLUME 96.7 fL (80.0-94.0); MEAN PLATELET VOLUME 8.3 fl (7.4-10.4); PLATELET 115 x1000/uL (130-400); RED BLOOD CELL COUNT 3.95 mill/uL (4.7-6.1)
[2019-12-07 05:37] LABS: CHLORIDE 111 mEq/L (98-107)
[2019-12-07] MEDS: BENZONATATE 100MG CAPSULE PO SCH ×3 (06:06→22:35)
[2019-12-07] MEDS: BUDESONIDE 0.5MG/2ML NEB HHN SCH ×2 (08:38→21:37)
[2019-12-07] MEDS: FAMOTIDINE 20MG/2ML VIAL IV SCH ×2 (09:46→22:35)
[2019-12-07] MEDS: CARVEDILOL 6.25 MG TABLET PO SCH ×2 (09:47→22:35)
[2019-12-07] MEDS: LORATADINE 10MG TABLET PO SCH (09:47)
[2019-12-07] MEDS ORDERED: DOCUSATE SODIUM 100MG CAPSULE PO PRN (10:15)
[2019-12-07] MEDS ORDERED: MAGNESIUM HYDROXIDE 400MG/5ML 30ML UDC PO PRN (10:15)
[2019-12-07] MEDS ORDERED: SENNOSIDES/DOCUSATE SOD 8.6/50MG TABLET PO PRN (10:15)
[2019-12-07] MEDS ORDERED: POLYETHYLENE GLYCOL 3350 (17GM) 1 DOSE PACK PO PRN (10:15)
[2019-12-07] MEDS ORDERED: BISACODYL 10MG SUPP PR PRN (10:15)
[2019-12-07 10:35] LABS: PLATELET ESTIMATE SLIGHTLY DECREASED
[2019-12-07] MEDS: LOSARTAN POTASSIUM 25 MG TABLET PO SCH (14:00)
[2019-12-07] MEDS: AZITHROMYCIN 500 MG in DEXT 5% WATER 250 ML IV SCH (15:02)
[2019-12-07] MEDS: HYDROCODONE/ACETAMINOPHEN 5/325MG TABLET PO PRN (16:40)
[2019-12-07] MEDS: DOCUSATE SODIUM 100MG CAPSULE PO PRN (16:42)
[2019-12-07] MEDS: MONTELUKAST SODIUM 10MG TABLET PO SCH (16:42)
[2019-12-07] MEDS: CEFTRIAXONE 1 G PREMIX 50 ML IV SCH (20:00)
[2019-12-07] MEDS: ATORVASTATIN CALCIUM 20MG TABLET PO SCH (22:35)
[2019-12-08] VITALS: BP 135/71
[2019-12-08] MEDS: IPRATROPIUM/ALBUTEROL 0.5-3(2.5)MG/3ML NEB HHN SCH ×3 (01:30→14:09)
[2019-12-08 04:00] VITALS: BP 117/62
[2019-12-08] MEDS: BENZONATATE 100MG CAPSULE PO SCH ×2 (05:17→14:31)
[2019-12-08 08:00] VITALS: BP 124/70
[2019-12-08] MEDS ORDERED: AZITHROMYCIN 500 MG TABLET PO SCH (09:00)
[2019-12-08] MEDS: LORATADINE 10MG TABLET PO SCH (09:04)
[2019-12-08] MEDS: LOSARTAN POTASSIUM 25 MG TABLET PO SCH (09:05)
[2019-12-08] MEDS: CARVEDILOL 6.25 MG TABLET PO SCH (09:05)
[2019-12-08] MEDS: FAMOTIDINE 20MG/2ML VIAL IV SCH (09:05)
[2019-12-08] MEDS: HYDROCODONE/ACETAMINOPHEN 5/325MG TABLET PO PRN (09:11)
[2019-12-08] MEDS: BUDESONIDE 0.5MG/2ML NEB HHN SCH ×2 (09:50→14:09)
[2019-12-08 12:00] VITALS: BP 115/66
[2019-12-08 15:31] VITALS: BP 115/66
[2019-12-08 16:00] VITALS: BP 118/67
[2019-12-08] MEDS: MONTELUKAST SODIUM 10MG TABLET PO SCH (16:47)
== END 2019-12-08 17:00 | DRG 471 ==
LOC: ER 16:03 → 5WST 18:11 → EDBEDREQ 18:34 → ENRESERV 21:49 → MICUNO 12-04 07:59 → 6EST 12-07 18:07
PROVIDERS: ADMIT Internal Medicine; ATTEND Internal Medicine
PROC: 0RG10J1 Fusion of Cervical Vertebral Joint with Synthetic Substitute, Posterior Approach, Posterior Column, Open Approach (ICD-10-PCS; principal; 2019-12-07)
PROC: 5A1945Z Respiratory Ventilation, 24-96 Consecutive Hours (ICD-10-PCS; 2019-12-07)
DX: M47.12 Other spondylosis with myelopathy, cervical region (principal); G82.50 Quadriplegia, unspecified; J18.9 Pneumonia, unspecified organism; J96.00 Acute respiratory failure, unspecified whether with hypoxia or hypercapnia; J44.1 Chronic obstructive pulmonary disease with (acute) exacerbation; J45.901 Unspecified asthma with (acute) exacerbation; E87.2 Acidosis; J44.0 Chronic obstructive pulmonary disease with (acute) lower respiratory infection; M48.02 Spinal stenosis, cervical region; M47.812 Spondylosis without myelopathy or radiculopathy, cervical region; M48.061 Spinal stenosis, lumbar region without neurogenic claudication; Z95.5 Presence of coronary angioplasty implant and graft; I25.10 Atherosclerotic heart disease of native coronary artery without angina pectoris; I11.9 Hypertensive heart disease without heart failure; E66.9 Obesity, unspecified; E78.5 Hyperlipidemia, unspecified; M47.22 Other spondylosis with radiculopathy, cervical region; Z68.32 Body mass index [BMI] 32.0-32.9, adult; E78.00 Pure hypercholesterolemia, unspecified; D69.6 Thrombocytopenia, unspecified; F03.90 Unspecified dementia, unspecified severity, without behavioral disturbance, psychotic disturbance, mood disturbance, and anxiety; K21.9 Gastro-esophageal reflux disease without esophagitis; R13.10 Dysphagia, unspecified; T38.0X5A Adverse effect of glucocorticoids and synthetic analogues, initial encounter; K59.00 Constipation, unspecified
CPT/HCPCS: 36415; 36600; 71045; 72040; 72141; 76000; 76937; 80048; 80053; 80061; 81003; 82375; 82805; 83605; 83735; 83880; 84145; 84478; 84484; 85025; 87070; 88304; 88311; 92610; 93005; 93306; 94002; 94003; 94640; 97163; 97166; 97530; 99285; C1713; C1725; J0330; J0456; J0690; J0696; J1100; J2250; J2270; J2405; J2704; J2710; J2765; J3010; J3490; J7030; J7050; J7060; J7121; J7626

== ENCOUNTER 2019-12-08 17:05 | Inpatient (IN) | payer MEDICARE, MEDICAID ==
[~2019-12-08] VITALS: Ht 167.6 cm; Wt 99.8 kg
[~2019-12-08 17:05] MED LIST: BENZ100C86 MT; CLON0.1T PO; DOCU-150 PO; FAMO20TA8 PO; IPRA3AMP31 IH; MOM MT; MONT10TA26 PO; NA P230E RC; ONDA4SOL PO
[2019-12-08 17:15] VITALS: BP 142/77
[2019-12-08] MEDS ORDERED: ACETAMINOPHEN 325MG TABLET PO PRN (17:30)
[2019-12-08] MEDS ORDERED: CLONIDINE 0.1MG TABLET PO PRN (17:30)
[2019-12-08] MEDS ORDERED: BISACODYL 5MG TABLET PO PRN (17:30)
[2019-12-08] MEDS ORDERED: MAGNESIUM HYDROXIDE 400MG/5ML 30ML UDC PO PRN (17:30)
[2019-12-08] MEDS ORDERED: DOCUSATE SODIUM 250MG CAPSULE PO PRN (17:30)
[2019-12-08] MEDS ORDERED: ONDANSETRON HCL 4MG TABLET PO PRN (17:30)
[2019-12-08] MEDS ORDERED: POLYETHYLENE GLYCOL 3350 (17GM) 1 DOSE PACK PO PRN (17:30)
[2019-12-08 18:00] VITALS: BP 142/77
[2019-12-08 20:00] VITALS: BP 122/64
[2019-12-08] MEDS ORDERED: FAMOTIDINE 20MG TABLET PO SCH (21:00)
[2019-12-08] MEDS: IPRATROPIUM/ALBUTEROL 0.5-3(2.5)MG/3ML NEB HHN SCH (22:04)
[2019-12-08] MEDS: BUDESONIDE 0.5MG/2ML NEB HHN SCH (22:04)
[2019-12-08] MEDS: BENZONATATE 100MG CAPSULE PO SCH (22:18)
[2019-12-08] MEDS: ATORVASTATIN CALCIUM 20MG TABLET PO SCH (22:18)
[2019-12-08] MEDS: CARVEDILOL 6.25 MG TABLET PO SCH (22:19)
[2019-12-08] MEDS: FAMOTIDINE 40MG TABLET PO SCH (23:04)
[2019-12-08] MEDS: CEFTRIAXONE 1 G PREMIX 50 ML IV SCH (23:04)
[2019-12-09] MEDS: BENZONATATE 100MG CAPSULE PO SCH ×3 (06:00→21:14)
[2019-12-09] MEDS: HYDROCODONE/ACETAMINOPHEN 5/325MG TABLET PO PRN ×2 (06:27→15:29)
[2019-12-09 08:00] VITALS: BP 131/81
[2019-12-09 08:16] LABS: BASOPHILS % 0.4 % (0.0-2.0); EOSINOPHILS % 2.5 % (0.0-5.0); HEMATOCRIT. 42.1 % (42.0-52.0); HEMOGLOBIN. 14.4 g/dL (14.0-18.0); LYMPHOCYTES % 15.1 % (20.0-50.0); MEAN CORPUSCULAR HEMOGLOBIN 32.6 pg (28.0-32.0); MEAN CORPUSCULAR VOLUME 95.5 fL (80.0-94.0); MEAN PLATELET VOLUME 8.3 fl (7.4-10.4); MONOCYTES % 5.2 % (2.0-8.0); NEUTROPHILS % 76.8 % (40.0-76.0); PLATELET 111 x1000/uL (130-400); RED BLOOD CELL COUNT 4.41 mill/uL (4.7-6.1); RED CELL DISTRIBUTION WIDTH 13.8 % (11.6-14.6)
[2019-12-09 08:21] LABS: CHLORIDE 108 mEq/L (98-107)
[2019-12-09] MEDS ORDERED: AZITHROMYCIN 500 MG TABLET PO SCH (09:00)
[2019-12-09] MEDS: LOSARTAN POTASSIUM 25 MG TABLET PO SCH (09:03)
[2019-12-09] MEDS: CARVEDILOL 6.25 MG TABLET PO SCH ×2 (09:03→20:32)
[2019-12-09] MEDS: LORATADINE 10MG TABLET PO SCH (09:03)
[2019-12-09] MEDS: IPRATROPIUM/ALBUTEROL 0.5-3(2.5)MG/3ML NEB HHN SCH ×2 (11:20→22:11)
[2019-12-09] MEDS: MONTELUKAST SODIUM 10MG TABLET PO SCH (17:43)
[2019-12-09 20:00] VITALS: BP 120/49
[2019-12-09] MEDS: CEFTRIAXONE 1 G PREMIX 50 ML IV SCH (20:32)
[2019-12-09] MEDS: FAMOTIDINE 40MG TABLET PO SCH (20:33)
[2019-12-09] MEDS: ATORVASTATIN CALCIUM 20MG TABLET PO SCH (20:33)
[2019-12-09] MEDS: BUDESONIDE 0.5MG/2ML NEB HHN SCH (22:11)
[2019-12-09 23:03] LABS: CLARITY URINE CLEAR (CLEAR); COLOR URINE YELLOW (YELLOW); KETONES URINE NEGATIVE (NEGATIVE); LEUKOCYTE ESTERASE URINE NEGATIVE (NEGATIVE); NITRITE URINE NEGATIVE (NEGATIVE); OCCULT BLOOD URINE NEGATIVE (NEGATIVE); PH URINE 7.5 (4.5-8.0); PROTEIN URINE NEGATIVE (NEGATIVE); UROBILINOGEN URINE 0.2 E.U./dL (0.2-1.0)
[2019-12-10] MEDS: IPRATROPIUM/ALBUTEROL 0.5-3(2.5)MG/3ML NEB HHN SCH ×4 (02:50→20:54)
[2019-12-10] MEDS: BENZONATATE 100MG CAPSULE PO SCH ×3 (05:51→21:05)
[2019-12-10 07:07] LABS: BASOPHILS % 0.2 % (0.0-2.0); EOSINOPHILS % 3.5 % (0.0-5.0); HEMATOCRIT. 39.5 % (42.0-52.0); HEMOGLOBIN. 13.9 g/dL (14.0-18.0); LYMPHOCYTES % 14.8 % (20.0-50.0); MEAN CORPUSCULAR HEMOGLOBIN 33.1 pg (28.0-32.0); MEAN CORPUSCULAR VOLUME 93.7 fL (80.0-94.0); MEAN PLATELET VOLUME 8.9 fl (7.4-10.4); MONOCYTES % 6.4 % (2.0-8.0); NEUTROPHILS % 75.1 % (40.0-76.0); PLATELET 103 x1000/uL (130-400); RED BLOOD CELL COUNT 4.21 mill/uL (4.7-6.1)
[2019-12-10 07:29] LABS: CHLORIDE 105 mEq/L (98-107)
[2019-12-10 07:37] LABS: PHOSPHORUS 3.5 mg/dL (2.5-4.9); TOTAL IRON BINDING CAPACITY 201 ug/dL (250-450)
[2019-12-10 07:43] LABS: FOLIC ACID (FOLATE) SERUM > 20.00 ng/mL (>5.38); VITAMIN B12 SERUM 1328 pg/mL (211-911)
[2019-12-10 08:13] VITALS: BP 121/72
[2019-12-10] MEDS: BUDESONIDE 0.5MG/2ML NEB HHN SCH ×2 (08:30→20:53)
[2019-12-10] MEDS: CARVEDILOL 6.25 MG TABLET PO SCH (08:45)
[2019-12-10] MEDS: FAMOTIDINE 40MG TABLET PO SCH (08:45)
[2019-12-10] MEDS: HYDROCODONE/ACETAMINOPHEN 5/325MG TABLET PO PRN ×2 (08:46→15:53)
[2019-12-10] MEDS: LORATADINE 10MG TABLET PO SCH (08:46)
[2019-12-10] MEDS: LOSARTAN POTASSIUM 25 MG TABLET PO SCH (09:00)
[2019-12-10 10:04] LABS: FERRITIN 348 ng/mL (22-322)
[2019-12-10 10:05] LABS: PROSTRATE SPECIFIC AG TOTAL 3.16 ng/mL (0.0-4.0)
[2019-12-10] MEDS: MONTELUKAST SODIUM 10MG TABLET PO SCH (17:55)
[2019-12-10] MEDS: FERROUS SULFATE 325MG TABLET PO SCH (17:55)
[2019-12-10 20:00] VITALS: BP 103/60
[2019-12-10] MEDS: CEFTRIAXONE 1 G PREMIX 50 ML IV SCH (20:13)
[2019-12-10] MEDS: CARVEDILOL 3.125 MG TABLET PO SCH (20:13)
[2019-12-10] MEDS: ATORVASTATIN CALCIUM 20MG TABLET PO SCH (20:14)
[2019-12-11] MEDS: HYDROCODONE/ACETAMINOPHEN 5/325MG TABLET PO PRN ×3 (00:11→20:15)
[2019-12-11] MEDS: IPRATROPIUM/ALBUTEROL 0.5-3(2.5)MG/3ML NEB HHN SCH ×4 (01:33→20:47)
[2019-12-11] MEDS: PANTOPRAZOLE 40MG DR TABLET PO SCH (06:04)
[2019-12-11] MEDS: BENZONATATE 100MG CAPSULE PO SCH ×3 (06:04→21:03)
[2019-12-11] MEDS: BUDESONIDE 0.5MG/2ML NEB HHN SCH (07:47)
[2019-12-11 08:13] VITALS: BP 115/55
[2019-12-11] MEDS: CARVEDILOL 3.125 MG TABLET PO SCH ×2 (09:00→20:15)
[2019-12-11] MEDS: LORATADINE 10MG TABLET PO SCH (09:05)
[2019-12-11] MEDS: FERROUS SULFATE 325MG TABLET PO SCH ×2 (09:05→17:01)
[2019-12-11] MEDS: MONTELUKAST SODIUM 10MG TABLET PO SCH (17:01)
[2019-12-11 20:00] VITALS: BP 128/73
[2019-12-11] MEDS: ATORVASTATIN CALCIUM 20MG TABLET PO SCH (20:14)
[2019-12-12] MEDS: IPRATROPIUM/ALBUTEROL 0.5-3(2.5)MG/3ML NEB HHN SCH ×4 (02:56→20:49)
[2019-12-12] MEDS: PANTOPRAZOLE 40MG DR TABLET PO SCH (06:20)
[2019-12-12] MEDS: BENZONATATE 100MG CAPSULE PO SCH ×3 (06:20→21:14)
[2019-12-12 08:00] VITALS: BP 102/56
[2019-12-12] MEDS: LORATADINE 10MG TABLET PO SCH (08:31)
[2019-12-12] MEDS: CARVEDILOL 3.125 MG TABLET PO SCH ×2 (08:33→20:35)
[2019-12-12] MEDS: FERROUS SULFATE 325MG TABLET PO SCH ×2 (09:29→16:31)
[2019-12-12] MEDS: MONTELUKAST SODIUM 10MG TABLET PO SCH (16:32)
[2019-12-12 20:00] VITALS: BP 131/51
[2019-12-12] MEDS: ATORVASTATIN CALCIUM 20MG TABLET PO SCH (20:35)
[2019-12-12] MEDS: SENNOSIDES/DOCUSATE SOD 8.6/50MG TABLET PO PRN (20:35)
[2019-12-13] MEDS: IPRATROPIUM/ALBUTEROL 0.5-3(2.5)MG/3ML NEB HHN SCH ×4 (02:31→20:40)
[2019-12-13] MEDS: BENZONATATE 100MG CAPSULE PO SCH ×3 (06:07→21:38)
[2019-12-13] MEDS: PANTOPRAZOLE 40MG DR TABLET PO SCH ×2 (06:07→21:38)
[2019-12-13 07:01] LABS: BASOPHILS % 0.2 % (0.0-2.0); EOSINOPHILS % 3.2 % (0.0-5.0); HEMATOCRIT. 36.2 % (42.0-52.0); HEMOGLOBIN. 12.6 g/dL (14.0-18.0); LYMPHOCYTES % 21.2 % (20.0-50.0); MEAN CORPUSCULAR HEMOGLOBIN 33.2 pg (28.0-32.0); MEAN CORPUSCULAR VOLUME 94.8 fL (80.0-94.0); MEAN PLATELET VOLUME 8.6 fl (7.4-10.4); MONOCYTES % 11.2 % (2.0-8.0); NEUTROPHILS % 64.2 % (40.0-76.0); PLATELET 164 x1000/uL (130-400); RED BLOOD CELL COUNT 3.81 mill/uL (4.7-6.1); RED CELL DISTRIBUTION WIDTH 13.8 % (11.6-14.6)
[2019-12-13 07:11] LABS: 25-HYDROXY VITAMIN D3 16 ng/mL (.)
[2019-12-13 07:17] LABS: CHLORIDE 106 mEq/L (98-107)
[2019-12-13 08:01] VITALS: BP 107/60
[2019-12-13] MEDS: LORATADINE 10MG TABLET PO SCH (08:23)
[2019-12-13] MEDS: FERROUS SULFATE 325MG TABLET PO SCH ×2 (08:23→17:12)
[2019-12-13] MEDS: CARVEDILOL 3.125 MG TABLET PO SCH ×2 (08:24→21:00)
[2019-12-13] MEDS: HYDROCODONE/ACETAMINOPHEN 5/325MG TABLET PO PRN (08:24)
[2019-12-13] MEDS ORDERED: DOCUSATE SODIUM 100MG CAPSULE PO PRN (13:10)
[2019-12-13] MEDS ORDERED: HYDROCODONE/ACETAMINOPHEN 5/325MG TABLET PO PRN (13:45)
[2019-12-13] MEDS ORDERED: MAGNESIUM CITRATE 300ML SOLUTION PO SCH (15:00)
[2019-12-13] MEDS: MONTELUKAST SODIUM 10MG TABLET PO SCH (17:12)
[2019-12-13] MEDS ORDERED: BISACODYL 10MG SUPP PR PRN (18:45)
[2019-12-13] MEDS: ERGOCALCIFEROL 50000UNITS CAPSULE PO SCH (19:15)
[2019-12-13 20:00] VITALS: BP 100/43
[2019-12-13] MEDS: POLYETHYLENE GLYCOL 3350 (17GM) 1 DOSE PACK PO SCH (21:38)
[2019-12-13] MEDS: ATORVASTATIN CALCIUM 20MG TABLET PO SCH (21:38)
[2019-12-14] MEDS: IPRATROPIUM/ALBUTEROL 0.5-3(2.5)MG/3ML NEB HHN SCH ×3 (02:18→14:30)
[2019-12-14] MEDS: BENZONATATE 100MG CAPSULE PO SCH ×3 (06:08→21:54)
[2019-12-14] MEDS: PANTOPRAZOLE 40MG DR TABLET PO SCH ×2 (06:10→06:17)
[2019-12-14 08:00] VITALS: BP 98/53
[2019-12-14] MEDS: DOCUSATE SODIUM 100MG CAPSULE PO SCH ×2 (08:22→16:34)
[2019-12-14] MEDS: FERROUS SULFATE 325MG TABLET PO SCH ×2 (08:22→16:34)
[2019-12-14] MEDS: CARVEDILOL 3.125 MG TABLET PO SCH (08:22)
[2019-12-14] MEDS: LORATADINE 10MG TABLET PO SCH (08:22)
[2019-12-14 13:40] VITALS: BP 102/69
[2019-12-14] MEDS: HYDROCODONE/ACETAMINOPHEN 5/325MG TABLET PO PRN (13:46)
[2019-12-14] MEDS: MONTELUKAST SODIUM 10MG TABLET PO SCH (16:34)
[2019-12-14] MEDS: BUDESONIDE 0.5MG/2ML NEB HHN SCH (19:59)
[2019-12-14 20:00] VITALS: BP 96/41
[2019-12-14] MEDS: POLYETHYLENE GLYCOL 3350 (17GM) 1 DOSE PACK PO SCH (21:00)
[2019-12-14 21:30] VITALS: BP 109/62
[2019-12-14] MEDS: ATORVASTATIN CALCIUM 20MG TABLET PO SCH (21:55)
[2019-12-15] MEDS: BENZONATATE 100MG CAPSULE PO SCH ×3 (06:14→21:41)
[2019-12-15] MEDS: PANTOPRAZOLE 40MG DR TABLET PO SCH (06:14)
[2019-12-15] MEDS: IPRATROPIUM/ALBUTEROL 0.5-3(2.5)MG/3ML NEB HHN SCH ×2 (08:04→17:00)
[2019-12-15 08:22] VITALS: BP 105/48
[2019-12-15] MEDS: FERROUS SULFATE 325MG TABLET PO SCH ×2 (08:22→16:45)
[2019-12-15] MEDS: LORATADINE 10MG TABLET PO SCH (08:22)
[2019-12-15] MEDS: DOCUSATE SODIUM 100MG CAPSULE PO SCH ×2 (08:22→16:45)
[2019-12-15 15:28] LABS: BASOPHILS % 0.3 % (0.0-2.0); EOSINOPHILS % 1.7 % (0.0-5.0); HEMATOCRIT. 36.1 % (42.0-52.0); HEMOGLOBIN. 12.4 g/dL (14.0-18.0); LYMPHOCYTES % 16.4 % (20.0-50.0); MEAN CORPUSCULAR HEMOGLOBIN 32.5 pg (28.0-32.0); MEAN CORPUSCULAR VOLUME 95.1 fL (80.0-94.0); MEAN PLATELET VOLUME 7.8 fl (7.4-10.4); MONOCYTES % 9.3 % (2.0-8.0); NEUTROPHILS % 72.3 % (40.0-76.0); PLATELET 221 x1000/uL (130-400)
[2019-12-15 15:29] LABS: CHLORIDE 106 mEq/L (98-107)
[2019-12-15] MEDS: FINASTERIDE 5MG TABLET PO SCH (15:33)
[2019-12-15] MEDS: TAMSULOSIN HCL 0.4MG SR CAPSULE PO SCH (15:33)
[2019-12-15] MEDS: GABAPENTIN 100MG CAPSULE PO SCH ×2 (15:33→21:41)
[2019-12-15] MEDS: MONTELUKAST SODIUM 10MG TABLET PO SCH (16:45)
[2019-12-15 20:00] VITALS: BP 99/44
[2019-12-15] MEDS: BUDESONIDE 0.5MG/2ML NEB HHN SCH (21:15)
[2019-12-15] MEDS: POLYETHYLENE GLYCOL 3350 (17GM) 1 DOSE PACK PO SCH (21:41)
[2019-12-15] MEDS: ATORVASTATIN CALCIUM 20MG TABLET PO SCH (21:41)
[2019-12-16] MEDS: BENZONATATE 100MG CAPSULE PO SCH ×3 (06:06→21:47)
[2019-12-16] MEDS: GABAPENTIN 100MG CAPSULE PO SCH ×3 (06:06→21:47)
[2019-12-16] MEDS: HYDROCODONE/ACETAMINOPHEN 5/325MG TABLET PO PRN (06:07)
[2019-12-16 08:17] VITALS: BP 113/70
[2019-12-16] MEDS: LORATADINE 10MG TABLET PO SCH (08:31)
[2019-12-16] MEDS: FINASTERIDE 5MG TABLET PO SCH (08:31)
[2019-12-16] MEDS: FERROUS SULFATE 325MG TABLET PO SCH ×2 (08:31→16:54)
[2019-12-16] MEDS: FAMOTIDINE 20MG TABLET PO SCH ×2 (08:31→20:56)
[2019-12-16] MEDS: TAMSULOSIN HCL 0.4MG SR CAPSULE PO SCH (08:31)
[2019-12-16] MEDS: DOCUSATE SODIUM 100MG CAPSULE PO SCH ×2 (08:31→16:54)
[2019-12-16] MEDS: IPRATROPIUM/ALBUTEROL 0.5-3(2.5)MG/3ML NEB HHN SCH (15:13)
[2019-12-16] MEDS: BUDESONIDE 0.5MG/2ML NEB HHN SCH ×2 (15:13→21:10)
[2019-12-16] MEDS: MONTELUKAST SODIUM 10MG TABLET PO SCH (16:54)
[2019-12-16 20:00] VITALS: BP 109/63
[2019-12-16] MEDS: POLYETHYLENE GLYCOL 3350 (17GM) 1 DOSE PACK PO SCH (20:56)
[2019-12-16] MEDS: ATORVASTATIN CALCIUM 20MG TABLET PO SCH (20:56)
[2019-12-17] MEDS: GABAPENTIN 100MG CAPSULE PO SCH ×3 (05:14→21:36)
[2019-12-17] MEDS: BENZONATATE 100MG CAPSULE PO SCH ×3 (05:14→21:38)
[2019-12-17 08:00] VITALS: BP 114/60
[2019-12-17] MEDS: DOCUSATE SODIUM 100MG CAPSULE PO SCH ×2 (08:16→17:06)
[2019-12-17] MEDS: TAMSULOSIN HCL 0.4MG SR CAPSULE PO SCH (08:19)
[2019-12-17] MEDS: LORATADINE 10MG TABLET PO SCH (08:19)
[2019-12-17] MEDS: FINASTERIDE 5MG TABLET PO SCH (08:19)
[2019-12-17] MEDS: FERROUS SULFATE 325MG TABLET PO SCH ×2 (08:20→17:05)
[2019-12-17] MEDS: FAMOTIDINE 20MG TABLET PO SCH ×2 (08:20→21:35)
[2019-12-17] MEDS: IPRATROPIUM/ALBUTEROL 0.5-3(2.5)MG/3ML NEB HHN SCH ×3 (09:35→22:04)
[2019-12-17] MEDS: BUDESONIDE 0.5MG/2ML NEB HHN SCH (09:35)
[2019-12-17 16:39] LABS: BG BASE EXCESS 0.7 mmol/L (-2.0-2.0); BG DEOXYHEMOGLOBIN 5.8 % (0.0-5.0); BG FRACTION INSPIRED OXYGEN 21; BG HCO3 ACT 23.6 mmol/L (22.0-26.0); BG METHEMOGLOBIN 0.1 % (0.0-1.5); BG OXYGEN SATURATION 94.2 % (92.0-98.5); BG OXYHEMOGLOBIN 94.1 % (94.0-97.0); BG PCO2 32.7 mmHg (35.0-45.0); BG PH 7.476 (7.350-7.450); BG PO2 65.8 mmHg (75.0-100.0); BG SAMPLE SITE RIGHT BRACHIAL; BG TOTAL HEMOGLOBIN 13.1 g/dL (12.0-18.0); BG VENT MODE ROOM AIR
[2019-12-17] MEDS: MONTELUKAST SODIUM 10MG TABLET PO SCH (17:05)
[2019-12-17 18:40] LABS: BASOPHILS % 0.5 % (0.0-2.0); EOSINOPHILS % 1.7 % (0.0-5.0); HEMATOCRIT. 37.1 % (42.0-52.0); HEMOGLOBIN. 12.7 g/dL (14.0-18.0); MEAN CORPUSCULAR HEMOGLOBIN 32.6 pg (28.0-32.0); MONOCYTES % 6.9 % (2.0-8.0); NEUTROPHILS % 74.9 % (40.0-76.0); PLATELET 235 x1000/uL (130-400); RED BLOOD CELL COUNT 3.91 mill/uL (4.7-6.1); RED CELL DISTRIBUTION WIDTH 13.8 % (11.6-14.6)
[2019-12-17 18:47] LABS: CHLORIDE 108 mEq/L (98-107)
[2019-12-17 20:00] VITALS: BP 115/57
[2019-12-17] MEDS: POLYETHYLENE GLYCOL 3350 (17GM) 1 DOSE PACK PO SCH (21:36)
[2019-12-17] MEDS: ATORVASTATIN CALCIUM 20MG TABLET PO SCH (21:37)
[2019-12-18] MEDS: BENZONATATE 100MG CAPSULE PO SCH ×3 (06:13→22:15)
[2019-12-18 07:55] VITALS: BP 114/65
[2019-12-18] MEDS: DOCUSATE SODIUM 100MG CAPSULE PO SCH ×2 (08:23→17:37)
[2019-12-18] MEDS: LORATADINE 10MG TABLET PO SCH (08:23)
[2019-12-18] MEDS: FAMOTIDINE 20MG TABLET PO SCH ×2 (08:23→20:49)
[2019-12-18] MEDS: FERROUS SULFATE 325MG TABLET PO SCH ×2 (08:23→17:37)
[2019-12-18] MEDS: FINASTERIDE 5MG TABLET PO SCH (08:23)
[2019-12-18] MEDS: TAMSULOSIN HCL 0.4MG SR CAPSULE PO SCH (08:24)
[2019-12-18 09:22] LABS: BASOPHILS % 0.3 % (0.0-2.0); EOSINOPHILS % 2.1 % (0.0-5.0); HEMATOCRIT. 36.6 % (42.0-52.0); HEMOGLOBIN. 12.6 g/dL (14.0-18.0); LYMPHOCYTES % 17.4 % (20.0-50.0); MEAN CORPUSCULAR HEMOGLOBIN 32.6 pg (28.0-32.0); MEAN CORPUSCULAR VOLUME 94.9 fL (80.0-94.0); MEAN PLATELET VOLUME 7.6 fl (7.4-10.4); MONOCYTES % 5.7 % (2.0-8.0); NEUTROPHILS % 74.5 % (40.0-76.0); PLATELET 239 x1000/uL (130-400); RED BLOOD CELL COUNT 3.86 mill/uL (4.7-6.1); RED CELL DISTRIBUTION WIDTH 13.7 % (11.6-14.6)
[2019-12-18 09:28] LABS: CHLORIDE 110 mEq/L (98-107)
[2019-12-18 09:36] LABS: PHOSPHORUS 2.8 mg/dL (2.5-4.9)
[2019-12-18] MEDS: IPRATROPIUM/ALBUTEROL 0.5-3(2.5)MG/3ML NEB HHN SCH (10:10)
[2019-12-18] MEDS ORDERED: POTASSIUM CHLORIDE 20MEQ TABLET SR PO SCH (12:45)
[2019-12-18] MEDS: MONTELUKAST SODIUM 10MG TABLET PO SCH (17:37)
[2019-12-18 20:00] VITALS: BP 94/64
[2019-12-18] MEDS: ATORVASTATIN CALCIUM 20MG TABLET PO SCH (20:48)
[2019-12-18] MEDS: GABAPENTIN 100MG CAPSULE PO SCH (20:49)
[2019-12-18] MEDS: POLYETHYLENE GLYCOL 3350 (17GM) 1 DOSE PACK PO SCH (20:49)
[2019-12-19] MEDS: BENZONATATE 100MG CAPSULE PO SCH ×3 (05:38→20:47)
[2019-12-19 07:20] LABS: CHLORIDE 111 mEq/L (98-107)
[2019-12-19] MEDS: IPRATROPIUM/ALBUTEROL 0.5-3(2.5)MG/3ML NEB HHN SCH ×3 (07:50→20:02)
[2019-12-19 08:03] VITALS: BP 128/69
[2019-12-19] MEDS: FAMOTIDINE 20MG TABLET PO SCH ×2 (08:42→20:46)
[2019-12-19] MEDS: FINASTERIDE 5MG TABLET PO SCH (08:42)
[2019-12-19] MEDS: DOCUSATE SODIUM 100MG CAPSULE PO SCH ×2 (08:43→17:14)
[2019-12-19] MEDS: LORATADINE 10MG TABLET PO SCH (08:43)
[2019-12-19] MEDS: TAMSULOSIN HCL 0.4MG SR CAPSULE PO SCH (08:43)
[2019-12-19] MEDS: FERROUS SULFATE 325MG TABLET PO SCH ×2 (08:43→17:14)
[2019-12-19] MEDS: MONTELUKAST SODIUM 10MG TABLET PO SCH (17:14)
[2019-12-19] MEDS: PREDNISONE 20MG TABLET PO SCH (17:17)
[2019-12-19 20:00] VITALS: BP 134/72
[2019-12-19] MEDS: GABAPENTIN 100MG CAPSULE PO SCH (20:46)
[2019-12-19] MEDS: POLYETHYLENE GLYCOL 3350 (17GM) 1 DOSE PACK PO SCH (20:46)
[2019-12-19] MEDS: CARVEDILOL 3.125 MG TABLET PO SCH (20:47)
[2019-12-19] MEDS: ATORVASTATIN CALCIUM 20MG TABLET PO SCH (20:47)
[2019-12-20] MEDS: BENZONATATE 100MG CAPSULE PO SCH ×3 (06:02→21:00)
[2019-12-20] MEDS: HYDROCODONE/ACETAMINOPHEN 5/325MG TABLET PO PRN (06:03)
[2019-12-20 08:00] VITALS: BP 132/68
[2019-12-20] MEDS: PREDNISONE 20MG TABLET PO SCH (08:39)
[2019-12-20] MEDS: FINASTERIDE 5MG TABLET PO SCH (08:39)
[2019-12-20] MEDS: LORATADINE 10MG TABLET PO SCH (08:39)
[2019-12-20] MEDS: FERROUS SULFATE 325MG TABLET PO SCH ×2 (08:39→17:15)
[2019-12-20] MEDS: FAMOTIDINE 20MG TABLET PO SCH ×2 (08:39→21:00)
[2019-12-20] MEDS: LOSARTAN POTASSIUM 25 MG TABLET PO SCH (08:39)
[2019-12-20] MEDS: DOCUSATE SODIUM 100MG CAPSULE PO SCH ×2 (08:40→17:15)
[2019-12-20] MEDS: TAMSULOSIN HCL 0.4MG SR CAPSULE PO SCH (08:40)
[2019-12-20] MEDS: CARVEDILOL 3.125 MG TABLET PO SCH ×2 (08:40→21:00)
[2019-12-20] MEDS: IPRATROPIUM/ALBUTEROL 0.5-3(2.5)MG/3ML NEB HHN SCH (14:39)
[2019-12-20] MEDS: MONTELUKAST SODIUM 10MG TABLET PO SCH (17:15)
[2019-12-20] MEDS: ERGOCALCIFEROL 50000UNITS CAPSULE PO SCH (17:52)
[2019-12-20 20:00] VITALS: BP 105/63
[2019-12-20] MEDS: GABAPENTIN 100MG CAPSULE PO SCH (21:00)
[2019-12-20] MEDS: ATORVASTATIN CALCIUM 20MG TABLET PO SCH (21:00)
[2019-12-20] MEDS: POLYETHYLENE GLYCOL 3350 (17GM) 1 DOSE PACK PO SCH (21:02)
[2019-12-21] MEDS: BENZONATATE 100MG CAPSULE PO SCH ×3 (05:48→21:35)
[2019-12-21 06:41] LABS: CHLORIDE 111 mEq/L (98-107)
[2019-12-21 06:54] LABS: BASOPHILS % 0.6 % (0.0-2.0); EOSINOPHILS % 0.9 % (0.0-5.0); HEMATOCRIT. 35.6 % (42.0-52.0); HEMOGLOBIN. 12.4 g/dL (14.0-18.0); LYMPHOCYTES % 15.7 % (20.0-50.0); MEAN CORPUSCULAR HEMOGLOBIN 32.9 pg (28.0-32.0); MEAN CORPUSCULAR VOLUME 94.5 fL (80.0-94.0); MONOCYTES % 6.8 % (2.0-8.0); PLATELET 270 x1000/uL (130-400); RED BLOOD CELL COUNT 3.77 mill/uL (4.7-6.1); RED CELL DISTRIBUTION WIDTH 14.1 % (11.6-14.6)
[2019-12-21] MEDS: IPRATROPIUM/ALBUTEROL 0.5-3(2.5)MG/3ML NEB HHN SCH ×2 (07:36→16:12)
[2019-12-21] MEDS: BUDESONIDE 0.5MG/2ML NEB HHN SCH ×2 (07:39→20:58)
[2019-12-21 07:59] VITALS: BP 117/63
[2019-12-21] MEDS: FAMOTIDINE 20MG TABLET PO SCH ×2 (08:16→21:36)
[2019-12-21] MEDS: FERROUS SULFATE 325MG TABLET PO SCH ×2 (08:16→16:41)
[2019-12-21] MEDS: LOSARTAN POTASSIUM 25 MG TABLET PO SCH (08:16)
[2019-12-21] MEDS: FINASTERIDE 5MG TABLET PO SCH (08:16)
[2019-12-21] MEDS: PREDNISONE 20MG TABLET PO SCH (08:16)
[2019-12-21] MEDS: DOCUSATE SODIUM 100MG CAPSULE PO SCH ×2 (08:17→16:41)
[2019-12-21] MEDS: TAMSULOSIN HCL 0.4MG SR CAPSULE PO SCH (08:17)
[2019-12-21] MEDS: LORATADINE 10MG TABLET PO SCH (08:17)
[2019-12-21] MEDS: CARVEDILOL 3.125 MG TABLET PO SCH ×2 (08:17→21:00)
[2019-12-21] MEDS ORDERED: POTASSIUM CHLORIDE 20MEQ TABLET SR PO NR (12:15)
[2019-12-21] MEDS: MONTELUKAST SODIUM 10MG TABLET PO SCH (16:41)
[2019-12-21 20:00] VITALS: BP 107/63
[2019-12-21] MEDS: ATORVASTATIN CALCIUM 20MG TABLET PO SCH (21:35)
[2019-12-21] MEDS: POLYETHYLENE GLYCOL 3350 (17GM) 1 DOSE PACK PO SCH (21:36)
[2019-12-21] MEDS: GABAPENTIN 100MG CAPSULE PO SCH (21:36)
[2019-12-22] MEDS: BENZONATATE 100MG CAPSULE PO SCH ×3 (05:42→21:30)
[2019-12-22 08:07] VITALS: BP 120/69
[2019-12-22] MEDS: FERROUS SULFATE 325MG TABLET PO SCH ×2 (08:25→17:28)
[2019-12-22] MEDS: PREDNISONE 20MG TABLET PO SCH (08:25)
[2019-12-22] MEDS: TAMSULOSIN HCL 0.4MG SR CAPSULE PO SCH (08:25)
[2019-12-22] MEDS: DOCUSATE SODIUM 100MG CAPSULE PO SCH ×2 (08:25→17:28)
[2019-12-22] MEDS: LORATADINE 10MG TABLET PO SCH (08:25)
[2019-12-22] MEDS: FAMOTIDINE 20MG TABLET PO SCH ×2 (08:26→21:30)
[2019-12-22] MEDS: CARVEDILOL 3.125 MG TABLET PO SCH ×2 (08:26→21:00)
[2019-12-22] MEDS: FINASTERIDE 5MG TABLET PO SCH (08:26)
[2019-12-22] MEDS: HYDROCODONE/ACETAMINOPHEN 5/325MG TABLET PO PRN (08:38)
[2019-12-22] MEDS: LOSARTAN POTASSIUM 25 MG TABLET PO SCH (08:42)
[2019-12-22] MEDS: BUDESONIDE 0.5MG/2ML NEB HHN SCH (09:58)
[2019-12-22] MEDS: IPRATROPIUM/ALBUTEROL 0.5-3(2.5)MG/3ML NEB HHN SCH ×3 (09:58→20:23)
[2019-12-22] MEDS: MONTELUKAST SODIUM 10MG TABLET PO SCH (17:28)
[2019-12-22 20:00] VITALS: BP 111/69
[2019-12-22] MEDS: GABAPENTIN 100MG CAPSULE PO SCH (21:30)
[2019-12-22] MEDS: ATORVASTATIN CALCIUM 20MG TABLET PO SCH (21:30)
[2019-12-22] MEDS: POLYETHYLENE GLYCOL 3350 (17GM) 1 DOSE PACK PO SCH (21:30)
[2019-12-23] MEDS: BENZONATATE 100MG CAPSULE PO SCH ×3 (05:42→21:02)
[2019-12-23 06:33] LABS: BASOPHILS % 0.4 % (0.0-2.0); EOSINOPHILS % 0.7 % (0.0-5.0); HEMATOCRIT. 36.9 % (42.0-52.0); HEMOGLOBIN. 12.7 g/dL (14.0-18.0); LYMPHOCYTES % 19.5 % (20.0-50.0); MEAN CORPUSCULAR HEMOGLOBIN 32.7 pg (28.0-32.0); MEAN PLATELET VOLUME 7.7 fl (7.4-10.4); MONOCYTES % 8.5 % (2.0-8.0); NEUTROPHILS % 70.9 % (40.0-76.0); PLATELET 294 x1000/uL (130-400); RED BLOOD CELL COUNT 3.88 mill/uL (4.7-6.1); RED CELL DISTRIBUTION WIDTH 14.3 % (11.6-14.6)
[2019-12-23 06:39] LABS: CHLORIDE 111 mEq/L (98-107)
[2019-12-23] MEDS: IPRATROPIUM/ALBUTEROL 0.5-3(2.5)MG/3ML NEB HHN SCH ×3 (07:30→22:27)
[2019-12-23 08:13] VITALS: BP 143/75
[2019-12-23] MEDS: CARVEDILOL 3.125 MG TABLET PO SCH ×2 (08:27→21:02)
[2019-12-23] MEDS: FINASTERIDE 5MG TABLET PO SCH (08:27)
[2019-12-23] MEDS: TAMSULOSIN HCL 0.4MG SR CAPSULE PO SCH (08:27)
[2019-12-23] MEDS: FERROUS SULFATE 325MG TABLET PO SCH ×2 (08:27→16:30)
[2019-12-23] MEDS: LORATADINE 10MG TABLET PO SCH (08:27)
[2019-12-23] MEDS: PREDNISONE 20MG TABLET PO SCH (08:28)
[2019-12-23] MEDS: DOCUSATE SODIUM 100MG CAPSULE PO SCH ×2 (08:28→16:30)
[2019-12-23] MEDS: FAMOTIDINE 20MG TABLET PO SCH ×2 (08:28→21:02)
[2019-12-23] MEDS: LOSARTAN POTASSIUM 25 MG TABLET PO SCH (08:28)
[2019-12-23] MEDS: MONTELUKAST SODIUM 10MG TABLET PO SCH (16:30)
[2019-12-23] MEDS: BUDESONIDE 0.5MG/2ML NEB HHN SCH ×2 (17:00→22:27)
[2019-12-23 20:00] VITALS: BP 139/76
[2019-12-23] MEDS: ATORVASTATIN CALCIUM 20MG TABLET PO SCH (21:02)
[2019-12-23] MEDS: GABAPENTIN 100MG CAPSULE PO SCH (21:02)
[2019-12-23] MEDS: POLYETHYLENE GLYCOL 3350 (17GM) 1 DOSE PACK PO SCH (21:02)
[2019-12-24] MEDS: BENZONATATE 100MG CAPSULE PO SCH ×3 (06:02→21:34)
[2019-12-24] MEDS: HYDROCODONE/ACETAMINOPHEN 5/325MG TABLET PO PRN (06:03)
[2019-12-24] MEDS: IPRATROPIUM/ALBUTEROL 0.5-3(2.5)MG/3ML NEB HHN SCH ×3 (07:29→20:08)
[2019-12-24 08:10] VITALS: BP 130/72
[2019-12-24] MEDS: PREDNISONE 20MG TABLET PO SCH (08:24)
[2019-12-24] MEDS: FAMOTIDINE 20MG TABLET PO SCH ×2 (08:24→20:35)
[2019-12-24] MEDS: LORATADINE 10MG TABLET PO SCH (08:24)
[2019-12-24] MEDS: CARVEDILOL 3.125 MG TABLET PO SCH ×2 (08:25→20:33)
[2019-12-24] MEDS: DOCUSATE SODIUM 100MG CAPSULE PO SCH ×2 (08:25→16:47)
[2019-12-24] MEDS: TAMSULOSIN HCL 0.4MG SR CAPSULE PO SCH (08:25)
[2019-12-24] MEDS: FERROUS SULFATE 325MG TABLET PO SCH ×2 (08:25→16:47)
[2019-12-24] MEDS: FINASTERIDE 5MG TABLET PO SCH (08:25)
[2019-12-24] MEDS: LOSARTAN POTASSIUM 25 MG TABLET PO SCH (08:25)
[2019-12-24] MEDS: BUDESONIDE 0.5MG/2ML NEB HHN SCH ×2 (16:43→20:07)
[2019-12-24] MEDS: MONTELUKAST SODIUM 10MG TABLET PO SCH (16:47)
[2019-12-24 20:00] VITALS: BP 99/61
[2019-12-24] MEDS: ATORVASTATIN CALCIUM 20MG TABLET PO SCH (20:34)
[2019-12-24] MEDS: GABAPENTIN 100MG CAPSULE PO SCH (20:34)
[2019-12-24] MEDS: POLYETHYLENE GLYCOL 3350 (17GM) 1 DOSE PACK PO SCH (20:34)
[2019-12-25] MEDS: BENZONATATE 100MG CAPSULE PO SCH ×3 (05:25→21:33)
[2019-12-25 06:04] LABS: CHLORIDE 111 mEq/L (98-107)
[2019-12-25 06:19] LABS: HEMATOCRIT. 37.1 % (42.0-52.0); HEMOGLOBIN. 12.9 g/dL (14.0-18.0); MEAN CORPUSCULAR HEMOGLOBIN 32.9 pg (28.0-32.0); MEAN CORPUSCULAR VOLUME 94.8 fL (80.0-94.0); MEAN PLATELET VOLUME 7.9 fl (7.4-10.4); PLATELET 299 x1000/uL (130-400); RED BLOOD CELL COUNT 3.91 mill/uL (4.7-6.1); RED CELL DISTRIBUTION WIDTH 14.2 % (11.6-14.6)
[2019-12-25 08:00] VITALS: BP 143/65
[2019-12-25] MEDS: TAMSULOSIN HCL 0.4MG SR CAPSULE PO SCH (08:06)
[2019-12-25] MEDS: DOCUSATE SODIUM 100MG CAPSULE PO SCH ×2 (08:06→16:34)
[2019-12-25] MEDS: FINASTERIDE 5MG TABLET PO SCH (08:06)
[2019-12-25] MEDS: FERROUS SULFATE 325MG TABLET PO SCH ×2 (08:07→16:35)
[2019-12-25] MEDS: CARVEDILOL 3.125 MG TABLET PO SCH ×2 (08:07→20:42)
[2019-12-25] MEDS: LORATADINE 10MG TABLET PO SCH (08:07)
[2019-12-25] MEDS: PREDNISONE 20MG TABLET PO SCH (08:07)
[2019-12-25] MEDS: FAMOTIDINE 20MG TABLET PO SCH ×2 (08:07→20:42)
[2019-12-25] MEDS: LOSARTAN POTASSIUM 25 MG TABLET PO SCH (08:07)
[2019-12-25] MEDS: HYDROCODONE/ACETAMINOPHEN 5/325MG TABLET PO PRN (09:53)
[2019-12-25] MEDS: BUDESONIDE 0.5MG/2ML NEB HHN SCH ×2 (09:55→20:35)
[2019-12-25] MEDS: IPRATROPIUM/ALBUTEROL 0.5-3(2.5)MG/3ML NEB HHN SCH (09:55)
[2019-12-25 10:52] LABS: PLATELET ESTIMATE NORMAL
[2019-12-25] MEDS: MONTELUKAST SODIUM 10MG TABLET PO SCH (16:35)
[2019-12-25 20:00] VITALS: BP 100/63
[2019-12-25] MEDS: POLYETHYLENE GLYCOL 3350 (17GM) 1 DOSE PACK PO SCH (20:41)
[2019-12-25] MEDS: ATORVASTATIN CALCIUM 20MG TABLET PO SCH (20:42)
[2019-12-25] MEDS: GABAPENTIN 100MG CAPSULE PO SCH (20:42)
[2019-12-26] MEDS: IPRATROPIUM/ALBUTEROL 0.5-3(2.5)MG/3ML NEB HHN SCH ×3 (01:40→16:28)
[2019-12-26] MEDS: BENZONATATE 100MG CAPSULE PO SCH ×3 (05:13→21:49)
[2019-12-26 08:00] VITALS: BP 104/68
[2019-12-26] MEDS: LORATADINE 10MG TABLET PO SCH (08:23)
[2019-12-26] MEDS: PREDNISONE 20MG TABLET PO SCH (08:23)
[2019-12-26] MEDS: DOCUSATE SODIUM 100MG CAPSULE PO SCH ×2 (08:23→17:58)
[2019-12-26] MEDS: FERROUS SULFATE 325MG TABLET PO SCH ×2 (08:23→17:58)
[2019-12-26] MEDS: FINASTERIDE 5MG TABLET PO SCH (08:23)
[2019-12-26] MEDS: TAMSULOSIN HCL 0.4MG SR CAPSULE PO SCH (08:23)
[2019-12-26] MEDS: FAMOTIDINE 20MG TABLET PO SCH ×2 (08:23→20:21)
[2019-12-26] MEDS: CARVEDILOL 3.125 MG TABLET PO SCH ×2 (08:30→20:21)
[2019-12-26] MEDS: LOSARTAN POTASSIUM 25 MG TABLET PO SCH (08:30)
[2019-12-26] MEDS: SENNOSIDES/DOCUSATE SOD 8.6/50MG TABLET PO PRN (10:03)
[2019-12-26] MEDS: HYDROCODONE/ACETAMINOPHEN 5/325MG TABLET PO PRN (10:04)
[2019-12-26] MEDS: BUDESONIDE 0.5MG/2ML NEB HHN SCH (11:15)
[2019-12-26] MEDS ORDERED: LACTULOSE 20G/30ML UDC PO SCH (17:33)
[2019-12-26] MEDS: MONTELUKAST SODIUM 10MG TABLET PO SCH (17:58)
[2019-12-26 20:00] VITALS: BP 134/77
[2019-12-26] MEDS: ATORVASTATIN CALCIUM 20MG TABLET PO SCH (20:21)
[2019-12-26] MEDS: POLYETHYLENE GLYCOL 3350 (17GM) 1 DOSE PACK PO SCH (20:21)
[2019-12-26] MEDS: GABAPENTIN 100MG CAPSULE PO SCH (20:21)
[2019-12-27] MEDS: IPRATROPIUM/ALBUTEROL 0.5-3(2.5)MG/3ML NEB HHN SCH ×3 (01:15→22:22)
[2019-12-27] MEDS: BENZONATATE 100MG CAPSULE PO SCH ×3 (05:30→21:42)
[2019-12-27 08:04] VITALS: BP 100/62
[2019-12-27] MEDS: FINASTERIDE 5MG TABLET PO SCH (08:53)
[2019-12-27] MEDS: LOSARTAN POTASSIUM 25 MG TABLET PO SCH (08:53)
[2019-12-27] MEDS: PREDNISONE 20MG TABLET PO SCH (08:53)
[2019-12-27] MEDS: TAMSULOSIN HCL 0.4MG SR CAPSULE PO SCH (08:53)
[2019-12-27] MEDS: DOCUSATE SODIUM 100MG CAPSULE PO SCH ×2 (08:53→17:41)
[2019-12-27] MEDS: FAMOTIDINE 20MG TABLET PO SCH ×2 (08:53→21:42)
[2019-12-27] MEDS: LORATADINE 10MG TABLET PO SCH (08:53)
[2019-12-27] MEDS: FERROUS SULFATE 325MG TABLET PO SCH ×2 (08:53→17:41)
[2019-12-27] MEDS: CARVEDILOL 3.125 MG TABLET PO SCH ×2 (08:54→21:00)
[2019-12-27] MEDS: HYDROCODONE/ACETAMINOPHEN 5/325MG TABLET PO PRN (10:20)
[2019-12-27] MEDS: MONTELUKAST SODIUM 10MG TABLET PO SCH (17:41)
[2019-12-27] MEDS: ERGOCALCIFEROL 50000UNITS CAPSULE PO SCH (17:41)
[2019-12-27 20:00] VITALS: BP 99/63
[2019-12-27] MEDS: GABAPENTIN 100MG CAPSULE PO SCH (21:42)
[2019-12-27] MEDS: ATORVASTATIN CALCIUM 20MG TABLET PO SCH (21:42)
[2019-12-27] MEDS: POLYETHYLENE GLYCOL 3350 (17GM) 1 DOSE PACK PO SCH (21:42)
[2019-12-28] MEDS: BENZONATATE 100MG CAPSULE PO SCH ×2 (06:02→13:01)
[2019-12-28 07:54] VITALS: BP 104/64
[2019-12-28] MEDS: LORATADINE 10MG TABLET PO SCH (08:50)
[2019-12-28] MEDS: PREDNISONE 20MG TABLET PO SCH (08:50)
[2019-12-28] MEDS: FAMOTIDINE 20MG TABLET PO SCH (08:50)
[2019-12-28] MEDS: FINASTERIDE 5MG TABLET PO SCH (08:50)
[2019-12-28] MEDS: FERROUS SULFATE 325MG TABLET PO SCH (08:50)
[2019-12-28] MEDS: TAMSULOSIN HCL 0.4MG SR CAPSULE PO SCH (08:50)
[2019-12-28] MEDS: DOCUSATE SODIUM 100MG CAPSULE PO SCH (08:51)
[2019-12-28] MEDS: CARVEDILOL 3.125 MG TABLET PO SCH (08:54)
[2019-12-28] MEDS: LOSARTAN POTASSIUM 25 MG TABLET PO SCH (08:54)
[2019-12-28] MEDS: HYDROCODONE/ACETAMINOPHEN 5/325MG TABLET PO PRN (08:54)
[2019-12-28] MEDS: IPRATROPIUM/ALBUTEROL 0.5-3(2.5)MG/3ML NEB HHN SCH (09:20)
[2019-12-28 12:08] VITALS: BP 104/64
== END 2019-12-28 16:08 | DRG 551 ==
PROVIDERS: ADMIT Physical Medicine & Rehabilitation Spinal Cord Injury Medicine; ATTEND Internal Medicine
DX: M48.02 Spinal stenosis, cervical region (principal); G82.50 Quadriplegia, unspecified; G93.41 Metabolic encephalopathy; J96.01 Acute respiratory failure with hypoxia; J18.9 Pneumonia, unspecified organism; J96.02 Acute respiratory failure with hypercapnia; J44.1 Chronic obstructive pulmonary disease with (acute) exacerbation; M47.12 Other spondylosis with myelopathy, cervical region; J44.0 Chronic obstructive pulmonary disease with (acute) lower respiratory infection; J45.901 Unspecified asthma with (acute) exacerbation; D62 Acute posthemorrhagic anemia; R13.10 Dysphagia, unspecified; M48.061 Spinal stenosis, lumbar region without neurogenic claudication; D69.6 Thrombocytopenia, unspecified; E66.9 Obesity, unspecified; E78.00 Pure hypercholesterolemia, unspecified; E78.5 Hyperlipidemia, unspecified; F03.90 Unspecified dementia, unspecified severity, without behavioral disturbance, psychotic disturbance, mood disturbance, and anxiety; G89.4 Chronic pain syndrome; I25.10 Atherosclerotic heart disease of native coronary artery without angina pectoris; K59.00 Constipation, unspecified; E87.6 Hypokalemia; E55.9 Vitamin D deficiency, unspecified; I11.9 Hypertensive heart disease without heart failure; N40.1 Benign prostatic hyperplasia with lower urinary tract symptoms; R33.8 Other retention of urine; T38.0X5A Adverse effect of glucocorticoids and synthetic analogues, initial encounter; G62.9 Polyneuropathy, unspecified; R47.1 Dysarthria and anarthria; R53.81 Other malaise; M19.90 Unspecified osteoarthritis, unspecified site; I95.9 Hypotension, unspecified; E61.1 Iron deficiency; G89.29 Other chronic pain; R42 Dizziness and giddiness; N41.9 Inflammatory disease of prostate, unspecified; R26.2 Difficulty in walking, not elsewhere classified; R41.89 Other symptoms and signs involving cognitive functions and awareness; R60.9 Edema, unspecified; R94.6 Abnormal results of thyroid function studies; G89.18 Other acute postprocedural pain; R06.02 Shortness of breath; Z99.81 Dependence on supplemental oxygen; Z68.35 Body mass index [BMI] 35.0-35.9, adult; Z95.5 Presence of coronary angioplasty implant and graft; Z87.891 Personal history of nicotine dependence; Z98.1 Arthrodesis status; Y92.89 Other specified places as the place of occurrence of the external cause
CPT/HCPCS: 36415; 36600; 71045; 80048; 80053; 81003; 82140; 82270; 82306; 82375; 82607; 82728; 82746; 82805; 82962; 83540; 83550; 83735; 84100; 84134; 84153; 84443; 85025; 85044; 92523; 92610; 93970; 94640; 97110; 97116; 97162; 97167; 97530; 97535; J0696; J7512; J7626; G0103